=== PATIENT | male | born 1950 | race Caucasian/White ===

== ENCOUNTER 2016-12-16 21:26 | Inpatient (IN) | payer MEDICARE, OTHER ==
[~2016-12-16] VITALS: Ht 170.2 cm; Wt 60.1 kg
[~2016-12-16 21:26] MED LIST: ASPI-664 PO; CALC667C4 PO; CLOB15OI15 TOP; CLON-379 PO; CNC30T PO; DOCU250C58 PO; ENAL20TA PO; ERGO500014 PO; HYDR-3671 PO; LEVO250T35 PO; NEPH PO; NIFE60TA7 PO; PANT40TA4 PO; SEVE800T7 PO
[2016-12-16] MEDS ORDERED: ONDANSETRON 4 MG INJ IV STA (22:05)
[2016-12-16] MEDS ORDERED: morphine 4 MG/ML VIAL IV STA (22:05)
[2016-12-16] MEDS ORDERED: SOD CHLORIDE 0.9% 500 ML IV STA (22:05)
[2016-12-16 22:49] LABS: ADD SCAN DIFF NO
--- NOTE | 2016-12-16 22:50 | RADRPT ---
PROCEDURE: CT BRAIN WITHOUT CONTRAST CLINICAL INDICATION: 66-year-old male with headaches. TECHNIQUE: The study was performed utilizing [employer] VCT 64-slice CT scanner. Direct axial sections were obtained from the foramen magnum to the vertex without the use of intravenous contrast material. Sagittal and coronal reformations were obtained. Sagittal and coronal reformations were obtained. One or more the following dose reduction techniques were utilized: automated exposure cont rol, adjustment of the mA and/or kV according to patient's size or use of iterative reconstruction t echnique. The images were viewed on a PACS workstation. CTD/vol = 45.0 mGy; Total Exam DLP = 810.3 mGy-cm. COMPARISON: CT brain March 15, 2016 FINDINGS: There is moderate degree of diffuse cortical and central atrophy with compensatory ventricular enlar gement. There is no evidence for mass effect or midline shift. There are periventricular areas of decreased density consistent with microangiopathic ischemic changes. There is an old lacunar infarct within the right external capsule region again noted. There is a questionable old lacunar infarct within the left pontine isthmus region. There is no evidence for acute intra or extra-axial blood. Calcifications are seen within the intracranial carotid arteries bilaterally. The bony calvarium is intact. 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 There is mild mucosal thickening within the ethmoid air cells bilater ally. No air-fluid levels are noted. Soft tissues again identified within the right mastoid air ce lls without interval change which may represent granulation tissue. There has been interval development of soft tissue and fluid within the left mastoid air cells and middle ear consistent wit h otomastoid disease. IMPRESSION: 1. Moderate diffuse atrophy. 2. Microangiopathic ischemic changes. 3. 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 4. Questionable old lacunar infarct within the left pontine isthmus region. 5. Vascular calcifications. 6. Mild mucosal thickening ethmoid air cells. 7. Interval development of left otomastoid disease. .Ruddy Morley MD, Date Time Electronically viewed and signed by .Ruddy Morley MD, on 12/16/2016 22:49 .Alysa
[2016-12-16 22:51] LABS: BASOPHILS % 0.9 % (0.0-2.0); EOSINOPHILS # 0.3 10^3/ul (0.0-0.5); EOSINOPHILS % 9.7 % (0.0-7.0); HEMATOCRIT 33.7 % (42.0-52.0); LYMPHOCYTES # 1.4 10^3/ul (0.8-2.9); LYMPHOCYTES % 40.4 % (15.0-51.0); MEAN CORPUSCULAR HEMOGLOBIN 31.8 pg (29.0-33.0); MEAN CORPUSCULAR HGB CONC 32.6 g/dl (32.0-37.0); MEAN CORPUSCULAR VOLUME 97.4 fl (82.0-101.0); MEAN PLATELET VOLUME 10.9 fl (7.4-10.4); MONOCYTE # 0.6 10^3/ul (0.3-0.9); MONOCYTES % 16.2 % (0.0-11.0); NEUTROPHIL # 1.1 10^3/ul (1.6-7.5); NEUTROPHILS % 32.5 % (39.0-77.0); PLATELET COUNT 206 10^3/UL (140-415); RED BLOOD COUNT 3.46 10^6/ul (4.70-6.10); RED CELL DISTRIBUTION WIDTH 14.2 % (11.5-14.5); WHITE BLOOD COUNT 3.4 10^3/ul (4.8-10.8)
[2016-12-16 23:02] LABS: INR 1.02; PROTIME 13.4 Sec (12.2-14.2)
[2016-12-16 23:03] LABS: PARTIAL THROMBOPLASTIN TIME 36.5 Sec (25.0-35.0)
[2016-12-16 23:04] LABS: POTASSIUM 4.3 mmol/L (3.5-5.1)
[2016-12-16 23:06] LABS: CREATININE 5.26 mg/dl (0.61-1.24)
[2016-12-16 23:07] LABS: CALCIUM 8.7 mg/dl (8.4-10.2)
[2016-12-17 00:29] VITALS: TEMP 97.8
[2016-12-17] MEDS ORDERED: NACL 0.9% 3 ML SYG IV SCH (01:30)
[2016-12-17] MEDS ORDERED: MAGNESIUM HYDROXIDE 30ML CUP PO PRN (01:30)
[2016-12-17] MEDS ORDERED: PIPER-TAZO 3.375 GM IV (PMX) 100 ML IVPB ONE (01:30)
[2016-12-17] MEDS ORDERED: ACETAMINOPHEN 325 MG TAB PO PRN (01:30)
[2016-12-17] MEDS ORDERED: VANCOMYCIN IV PER PHARMACY XX SCH (01:30)
[2016-12-17] MEDS ORDERED: morphine 2 MG INJ IV PRN (01:30)
[2016-12-17] MEDS ORDERED: ONDANSETRON 4 MG INJ IV PRN (01:30)
--- NOTE | 2016-12-17 01:52 | ERA ---
ER Documentation Chief Complaint Date/Time DATE: 12/17/16 TIME: 01:51 Chief Complaint ear infection x 2 weeks. nausea/pain HPI This is a 66-year-old male comes in with complaints of left-sided ear and jaw pain for the past 2 weeks. He has been on outpatient course of antibiotics at a care home facility but with no improvement. Patient comes in with complaints of mild to moderate pain in that area. ROS All systems reviewed and are negative except as per history of present illness. Medications Home Meds Active Scripts Clonidine Hcl* (Clonidine Hcl*) 0.1 Mg Tab, 0.1 MG PO TID for 30 Days Prov:MARY DINERO MD 07/24/15 Reported Medications Clobetasol Propionate* (Clobetasol Propionate*) 15 Gm Oint, 1 APPLIC TOP BID, # 1 TUB 03/15/16 Nifedipine* (Nifedipine ER*) 60 Mg Tablet.sa, 120 MG PO DAILY, TAB.SA 03/15/16 Ergocalciferol* (Drisdol* (Vitamin D2)) 50,000 Unit Capsule, 44047 UNIT PO Q7D, CAP TAKES ON Saturday03/15/16 Docusate Sodium* (Colace*) 250 Mg Capsule, 250 MG PO BID, #60 CAP 03/15/16 Cinacalcet* (Sensipar*) 30 Mg Tab, 30 MG PO WITH DINNER, TAB 07/22/15 Sevelamer Carbonate* (Renvela*) 800 Mg Tablet, 0.8 GM PO WITH MEALS, TAB 07/22/15 Pantoprazole* (Pantoprazole*) 40 Mg Tablet.dr, 40 MG PO DAILY, TAB 07/22/15 Hydralazine Hcl* (Hydralazine Hcl*) 25 Mg Tab, 25 MG PO Q8, TAB 07/22/15 Enalapril Maleate* (Enalapril Maleate*) 20 Mg Tablet, 20 MG PO DAILY, TAB 07/22/15 Aspirin* (Aspirin* EC) 81 Mg Tablet.dr, 81 MG PO DAILY, TAB 07/22/15 Multivit/Ca Carb/B Cmplx/Fa* (Cecilia-Sana*) 1 Tab Tab, PO DAILY 06/05/11 Calcium Acetate (Phoslo) 667 Mg Capsule, PO TID 06/05/11 Discontinued Scripts Levofloxacin* (Levaquin*) 250 Mg Tablet, 250 MG PO DAILY for 5 Days, #5 TAB Prov:MARY DINERO MD 03/20/16 Allergies Allergies: Coded Allergies: No Known Allergies (Verified Allergy, Mild, 03/15/16) PMhx/Soc Anesthesia Reaction: No Hx Neurological Disorder: No (PT IS VERY DROWSY) Hx Respiratory Disorders: Yes (ON O2, PT IS VERY DROWSY) Hx Miscellaneous Medical Probl: Yes (CHRONIC ANEMIA, end stage renal failure, htn) Hx Alcohol Use: No Hx Substance Use: No Hx Tobacco Use: No Smoking Status: Never smoker Physical Exam Vitals Vital Signs Date Time Temp Pulse Resp B/P Pulse Ox O2 Delivery O2 Flow Rate FiO2 12/17/16 00:29 97.8 79 16 137/76 97 Room Air 12/16/16 22:24 97.8 87 16 155/70 97 Room Air 12/16/16 21:42 97.8 55 12 162/72 97 Physical Exam Const: [] Head: Atraumatic Eyes: Normal Conjunctiva ENT: Normal External Ears, Nose and Mouth. Neck: Full range of motion..~ No meningismus. Resp: Clear to auscultation bilaterally Cardio: Regular rate and rhythm, no murmurs Abd: Soft, non tender, non distended. Normal bowel sounds Skin: No petechiae or rashes Back: No midline or flank tenderness Ext: No cyanosis, or edema Neur: Awake and alert Psych: Normal Mood and Affect Result Diagram: 12/16/160 12/16/16 2220 Results 24 hrs Laboratory Tests Test 12/16/16 22:20 Activated Partial Thromboplast Time 36.5Sec Anion Gap 17 Basophils # 0.010^3/ul Basophils % 0.9% Blood Urea Nitrogen 47mg/dl Calcium Level 8.7mg/dl Carbon Dioxide Level 33mmol/L Chloride Level 94mmol/L Creatinine 5.26mg/dl Eosinophils # 0.310^3/ul Eosinophils % 9.7% Glucose Level 120mg/dl Hematocrit 33.7% Hemoglobin 11.0g/dl INR International Normalized Ratio 1.02 Lymphocytes # 1.410^3/ul Lymphocytes % 40.4% Mean Corpuscular Hemoglobin 31.8pg Mean Corpuscular Hemoglobin Concent 32.6g/dl Mean Corpuscular Volume 97.4fl Mean Platelet Volume 10.9fl Monocytes # 0.610^3/ul Monocytes % 16.2% Neutrophils # 1.110^3/ul Neutrophils % 32.5% Nucleated Red Blood Cells # 0.010^3/ul Nucleated Red Blood Cells % 0.0/100WBC Platelet Count 99772^3/UL Potassium Level 4.3mmol/L Prothrombin Time 13.4Sec Prothrombin Time Ratio 1.0 Red Blood Count 3.4610^6/ul Red Cell Distribution Width 14.2% Sodium Level 140mmol/L White Blood Count 3.410^3/ul Current Medications Medications (Trade) Dose Ordered Sig/[place] Route PRN Reason Start Time Stop Time Status Last Admin Dose Admin Sodium Chloride (NS) 500 ml @ 500 mls/hr Q1H STAT IV 12/16/16 22:05 12/16/16 23:04 DC 12/16/16 22:21 Ondansetron HCl (Zofran Inj) 4 mg ONCE STAT IV 12/16/16 22:05 12/16/16 22:07 DC 12/16/16 22:21 Morphine Sulfate 4 mg 4 mg ONCE STAT IV 12/16/16 22:05 12/16/16 22:07 DC 12/16/16 22:20 Piperacillin Sod/ Tazobactam Sod (Zosyn 3.375gm/ 100 ml (Pmx)) 100 ml @ 200 mls/hr ONCE ONCE IVPB 12/17/16 01:30 12/17/16 01:59 12/17/16 01:26 IV Flush (NS 3 ml) 3 ml PER PROTOCOL IV 12/17/16 01:30 UNV Ondansetron HCl (Zofran Inj) 4 mg Q6H PRN IV NAUSEA AND/OR VOMITING 12/17/16 01:30 UNV Acetaminophen (Tylenol Tab) 650 mg Q6H PRN PO PAIN LEVEL 1-3 OR FEVER 12/17/16 01:30 UNV Acetaminophen/ Hydrocodone Bitart ([place] (5/325)) 1 tab Q6H PRN PO MODERATE PAIN LEVEL 4-6 12/17/16 01:30 UNV Morphine Sulfate (morphine) 2 mg Q4H PRN IV SEVERE PAIN LEVEL 7-10 12/17/16 01:30 UNV Docusate Sodium (Colace) 100 mg Q12H PRN PO CONSTIPATION 12/17/16 01:30 UNV Magnesium Hydroxide (Milk Of Mag) 30 ml DAILY PRN PO CONSTIPATION 12/17/16 01:30 UNV Pantoprazole (Protonix Tab) 40 mg DAILY@06 PO 12/17/16 06:00 UNV Heparin Sodium (Porcine) (Heparin (5000 Units/0.5 ml)) 5,000 unit Q12 SC 12/17/16 09:00 UNV Aspirin (Halfprin) 81 mg DAILY PO 12/17/16 09:00 UNV Calcium Acetate (Phoslo) 667 mg TID PO 12/17/16 09:00 UNV Cinacalcet (Sensipar) 30 mg WITH DINNER PO 12/17/16 18:00 UNV Docusate Sodium (Colace) 250 mg BID PO 12/17/16 09:00 UNV Ergocalciferol (Drisdol) 50,000 unit Q7D PO 12/17/16 01:30 UNV Hydralazine HCl (Apresoline) 25 mg Q8 PO 12/17/16 06:00 UNV Multivit/Ca Carb/ B Cmplx/FA/Prenat (Cecilia-Sana) 1 tab DAILY PO 12/17/16 09:00 UNV Nifedipine (Procardia Xl) 120 mg DAILY PO 12/17/16 09:00 UNV Pantoprazole (Protonix Tab) 40 mg DAILY PO 12/17/16 09:00 UNV Sevelamer Carbonate (Renvela) 0.8 gm WITH MEALS PO 12/17/16 08:00 UNV Vancomycin HCl VANCOMYCIN PER PHARMACY PER PROTOCOL XX 12/17/16 01:30 UNV Piperacillin Sod/ Tazobactam Sod (Zosyn 2.25gm/ 50ml (Pmx)) 50 ml @ 100 mls/hr Q12 IVPB 12/17/16 09:00 UNV Procedures/MDM Medical decision making: CT shows evidence of otomastoiditis. Patient started on intravenous antibiotics. Patient will be admitted to Dr. Schafer who is the patient's primary care physician Departure Diagnosis: Primary Impression: Mastoiditis Qualified Code: H70.90 - Mastoiditis, unspecified laterality Condition: Serious DEMETRICE CONDE Dec 17, 2016 01:52
--- NOTE | 2016-12-17 02:34 | RADRPT ---
PROCEDURE: CHEST - 1 VIEW CLINICAL INDICATION: 66-year-old male with chest pain. TECHNIQUE: A single frontal AP upright portable view of the chest was performed. The images were reviewed on a PACS workstation. COMPARISON: Chest x-ray March 19, 2016. FINDINGS: The cardiomediastinal silhouette is mildly enlarged. The thoracic aortic arch is calcified. There i s a shallow inspiration. There is bilateral lower lung zone subsegmental atelectasis. There is no evidence for an infiltrate. There is no evidence for congestive heart failure. There is no evidence for pneumothorax. The osseous structures are intact. IMPRESSION: 1. Cardiomegaly. 2. Calcified thoracic aortic arch. 3. Shallow inspiration. 4. Bilateral lower lung zone subsegmental atelectasis. .Ruddy Morley MD, Date Time Electronically viewed and signed by .Ruddy Morley MD, on 12/17/2016 02:34 .M/
[2016-12-17 02:51] VITALS: BP 156/64; RESP 16
[2016-12-17 03:08] VITALS: Ht 170.2 cm; Wt 60.1 kg
[2016-12-17] MEDS ORDERED: VANCOMYCIN 1.5 GM in SOD CHLORIDE 0.9% 250 ML IVPB SCH (05:00)
[2016-12-17] MEDS: PANTOPRAZOLE (EC) 40 MG TAB PO SCH (05:34)
[2016-12-17 08:43] VITALS: BP 170/74; RESP 18
[2016-12-17] MEDS: PIPER-TAZO 2.25 GM (PMX) 50 ML IVPB SCH ×2 (08:49→21:17)
[2016-12-17] MEDS: SEVELAMER CARBONATE 0.8 GM PKT PO SCH ×3 (08:49→17:30)
[2016-12-17] MEDS: MULTIVIT/CA CARB/B CMPLX/FA TAB PO SCH (08:50)
[2016-12-17] MEDS: DOCUSATE SODIUM 250 MG CAP PO SCH ×2 (08:50→21:17)
[2016-12-17] MEDS: ASPIRIN (EC) 81 MG TAB PO SCH (08:50)
[2016-12-17] MEDS: CALCIUM ACETATE 667 MG CAP PO SCH ×3 (08:50→21:17)
[2016-12-17] MEDS: NIFEdipine (XL) 60 MG TAB PO SCH (08:51)
[2016-12-17] MEDS: HEPARIN 5,000 UNIT/0.5 ML SYG SC SCH ×2 (08:56→21:22)
[2016-12-17] MEDS ORDERED: PANTOPRAZOLE (EC) 40 MG TAB PO SCH (09:00)
[2016-12-17 11:29] VITALS: BP 165/72; PULSE 54
[2016-12-17] MEDS: HYDROCODONE/APAP (5/325) TAB PO PRN ×2 (12:05→23:10)
[2016-12-17 12:46] VITALS: BP 155/70; PULSE 56
--- NOTE | 2016-12-17 16:55 | QN ---
Documentation Comment [id number] consult A/P ESRD HTN DM OTOMASTOIDITES BLINDNESS PLAN PER ORDER JAZZY THOMAS MD Dec 17, 2016 16:54
[2016-12-17] MEDS: CINACALCET 30 MG TAB PO SCH (17:30)
[2016-12-17] MEDS ORDERED: AMLODIPINE 5 MG TAB PO ONE (18:00)
[2016-12-17 20:00] VITALS: BP 120/58; RESP 18
[2016-12-17] MEDS: ATORVASTATIN 40 MG TAB PO SCH (21:17)
[2016-12-18] VITALS (13 sets, daily range): BP systolic 132–229; BP diastolic 68–98; PULSE 47–56; RESP 10–18
--- NOTE | 2016-12-18 03:21 | HP ---
DATE OF ADMISSION: 12/17/2016 REASON FOR ADMISSION: Acute left heel mastoiditis and severe left heel pain. HISTORY OF PRESENT ILLNESS: The patient is a 66-year-old male who is legally blind, overal l debilitated, with a history of end-stage renal disease on hemodialysis every Saturday, , an d Saturday, nonambulatory, history of diabetes mellitus and hypertension who currently resides at [facility]. The patient states that in the past 2 to 3 weeks, he has b een complaining of increased left ear pain. The pain was more severe, and he came to the emergency department. In the ER, initial vital signs showed a temperature 97.8, pulse 55, respirations 12, bl ood pressure 162/72, saturation 97%. The patient underwent a CT scan of the brain which showed mode rate diffuse atrophy, microangiopathic ischemic changes, old right external capsule lacunar infarct, questionable old lacunar infarct within the left pontine isthmus region, vascular calcification, mi ld mucosal thickening of ethmoid air cells. There is interval development of left mastoiditis. Sia st x-ray shows bilateral lower lung zone subsegmental atelectasis and calcified thoracic aorta and c ardiomegaly. The patient received Zosyn for mastoiditis and was admitted for further care. The westley n complaint is the patient's left ear pain. The patient is admitted for further care. Denies any f ever or chills. Denies any weakness or numbness. The patient overall unfortunately is debilitated, bedridden. Since admission, I consulted the patient's ranch manager, Dr. Roel Jacob, to dialyze h im during the patient's stay. PAST MEDICAL HISTORY: Includes diabetes mellitus, hypertension, end-stage renal disease, debilitate d state, legally blind, anemia of chronic disease, and left AV shunt. SURGICAL HISTORY: Includes cholecystectomy and left AV fistula. ALLERGIES: NO KNOWN DRUG ALLERGIES. SOCIAL HISTORY: Tobacco: None. Alcohol: Socially in the past. Drugs: None. FAMILY HISTORY: The patient has extensive history of diabetes mellitus in the family. The patient is , +4, one of them is . MEDICATIONS: Include 1. Aspirin 81 mg daily. 2. Clonidine 0.1 mg t.i.d. 3. Enalapril 20 mg daily. 4. Hydralazine 25 mg t.i.d. 5. Nifedipine 60 mg 2 tablets daily. 6. [place] 3 two capsules b.i.d. 7. Protonix 40 mg daily. 8. Renvela 800 mg t.i.d. 9. Sensipar 60 mg 1 tab daily with dinner, 90 mg with dinner. 10. Stool softener 250 b.i.d. 11. Vitamin D 50,000 units once every week on Saturday. 12. Clobetasol 0.5 ointment as directed b.i.d. REVIEW OF SYSTEMS: Per HPI. PHYSICAL EXAMINATION: VITAL SIGNS: Temperature 97.6, pulse 56, respirations 18, blood pressure 155/70, saturation 97% on room air. GENERAL: The patient is in no acute distress. The patient is legally blind. NECK: No lymphadenopathy. Pain upon movement of the left earlobe. CARDIOVASCULAR: S1 and S2, regular rate. LUNGS: Clear. ABDOMEN: Soft, nontender. EXTREMITIES: Contracted at the knees, unfortunately. Left upper extremity AV fistula noted. LABORATORY DATA: White count of 3.4, hemoglobin 11, hematocrit 34, platelet count 206, neutrophils 33%, lymphocytes 40%, monocytes 16%. Sodium 140, potassium 4.3, chloride 94, bicarbonate 23, BUN is 47, creatinine 5.26, glucose 120. INR 1.02. Chest x-ray as above. CAT scan of the brain as above . EKG, I do not see one. Labs dated 12/17/2016, outpatient cholesterol was 260, LDL was high at 14 7, glucose of 107. Uric acid 5.2. AST was slightly high at 51. Iron levels were normal at 92. UA was essentially negative. ASSESSMENT AND PLAN: This is an unfortunate 66-year-old male with history of end-stage carlo al disease, diabetes mellitus, hypertension, legally blind, who presents with left-sided ear mastoid itis. 1. Left ear mastoiditis. We will obtain cultures of the left ear. I started the patient on broad spectrum antibiotic with Zosyn and vancomycin to cover strep, staph, MRSA, pseudomonas. We will con sult ID regarding duration of IV antibiotics. Follow up cultures. See if we need to obtain an ENT consultation. Pain control will be provided for now, and we will follow. 2. End-stage renal disease. The patient to be dialyzed tomorrow as his dialysis days are Saturday, , and Saturday. 3. Hypertension. Resume patient's medication. 4. Dyslipidemia. Start the patient on statin. 5. Diabetes mellitus. Check Accu-Chek with meals and at bedtime. Insulin coverage will be provide d. Check hemoglobin A1c. 6. The patient will be placed on deep vein thrombosis prophylaxis and gastrointestinal prophylaxis. Case discussed with family at bedside. We will follow. Dictated By: MARY DUPONT/SHARYN Conf#: [id number] DID#: [id number]
[2016-12-18 05:34] LABS: ADD SCAN DIFF NO
[2016-12-18 06:03] LABS: POTASSIUM 5.2 mmol/L (3.5-5.1)
[2016-12-18] MEDS: PANTOPRAZOLE (EC) 40 MG TAB PO SCH (06:04)
[2016-12-18 06:05] LABS: ALBUMIN/GLOBULIN RATIO 0.96; CREATININE 7.57 mg/dl (0.61-1.24); TOTAL PROTEIN 6.1 g/dl (6.1-8.1)
[2016-12-18 06:06] LABS: CALCIUM 8.3 mg/dl (8.4-10.2); MAGNESIUM 2.5 mg/dl (1.7-2.5); PHOSPHORUS 4.4 mg/dl (2.5-4.9)
[2016-12-18 06:08] LABS: BASOPHILS % 0.5 % (0.0-2.0); EOSINOPHILS # 0.3 10^3/ul (0.0-0.5); EOSINOPHILS % 7.3 % (0.0-7.0); HEMATOCRIT 30.5 % (42.0-52.0); HEMOGLOBIN 9.8 g/dl (14.0-18.0); LYMPHOCYTES # 1.4 10^3/ul (0.8-2.9); LYMPHOCYTES % 36.1 % (15.0-51.0); MEAN CORPUSCULAR HEMOGLOBIN 31.6 pg (29.0-33.0); MEAN CORPUSCULAR HGB CONC 32.1 g/dl (32.0-37.0); MEAN CORPUSCULAR VOLUME 98.4 fl (82.0-101.0); MEAN PLATELET VOLUME 10.9 fl (7.4-10.4); MONOCYTE # 0.4 10^3/ul (0.3-0.9); MONOCYTES % 10.5 % (0.0-11.0); NEUTROPHIL # 1.7 10^3/ul (1.6-7.5); NEUTROPHILS % 45.6 % (39.0-77.0); PLATELET COUNT 208 10^3/UL (140-415); RED CELL DISTRIBUTION WIDTH 14.1 % (11.5-14.5); WHITE BLOOD COUNT 3.8 10^3/ul (4.8-10.8)
--- NOTE | 2016-12-18 07:57 | CONS ---
DATE OF ADMISSION: 12/17/2016 DATE OF CONSULTATION: 12/17/2016 INFECTIOUS DISEASE CONSULTATION REASON FOR CONSULTATION: Antibiotic management. HISTORY OF PRESENT ILLNESS: Kumar Rebolledo is a 66-year-old male who comes in with complaints of magnus sea, pain and ear infection for 2 weeks. The patient has left-sided ear and jaw pain. He has had a n outpatient course of antibiotics at a correction facility without any improvement. His is ta abhijit care of by Dr. Omkar Patterson. PAST MEDICAL HISTORY: His past problems include: 1. Hypertension. 2. Hypothyroidism. 3. Anemia of chronic disease. 4. As noted, end-stage renal failure. PAST MEDICAL HISTORY: Operations as outlined, none. FAMILY HISTORY: Noncontributory. SOCIAL HISTORY: He does not smoke, drink or abuse drugs. ALLERGIES: NONE TO PENICILLIN, SULFA OR FOODS. MEDICATIONS: Per chart. REVIEW OF SYSTEMS: As per HPI. PHYSICAL EXAMINATION: GENERAL: The patient is a 66-year-old male who is awake, responsive, in no acute distress. VITAL SIGNS: Stable. He is afebrile. SKIN: Without generalized rash. HEENT: The patient has left ear pain. NECK: Supple. LYMPH NODES: None palpable. CHEST: Decreased breath sounds at the bases. HEART: Without murmur or gallop. ABDOMEN: Soft, nontender without organosplenomegaly or masses. EXTREMITIES: Without cyanosis, clubbing, or edema. RECTAL AND GENITAL: Exams deferred. NEUROLOGIC: No focal neurological abnormalities. ANCILLARY LABORATORY DATA: White count of 3.4, H and H 11 and 33.7, platelet count 206,000. BUN an d creatinine 47/5.26. IMPRESSION AND PLAN: The patient has evidence on CT scan of otomastoiditis. He was started on vanc omycin and Zosyn. He should be seen by an ear, nose and throat specialist. I will dictate my findi ngs to Dr. Patterson and to Dr. Roel Jacob. Dictated By: DORCAS HDZ MD, JD/SHARYN Conf#: [id number] DID#: [id number]
[2016-12-18 08:18] LABS: THYROID STIMULATING HORMONE 1.87 MIU/L (0.465-4.680)
[2016-12-18] MEDS: CALCIUM ACETATE 667 MG CAP PO SCH ×3 (08:46→20:00)
[2016-12-18] MEDS: ASPIRIN (EC) 81 MG TAB PO SCH (08:46)
[2016-12-18] MEDS: MULTIVIT/CA CARB/B CMPLX/FA TAB PO SCH (08:46)
[2016-12-18] MEDS: DOCUSATE SODIUM 250 MG CAP PO SCH ×2 (08:46→20:02)
[2016-12-18] MEDS: SEVELAMER CARBONATE 0.8 GM PKT PO SCH ×3 (08:46→18:05)
[2016-12-18] MEDS: NIFEdipine (XL) 60 MG TAB PO SCH (08:47)
[2016-12-18] MEDS: PIPER-TAZO 2.25 GM (PMX) 50 ML IVPB SCH ×2 (08:57→20:00)
[2016-12-18] MEDS: HEPARIN 5,000 UNIT/0.5 ML SYG SC SCH ×2 (09:06→20:17)
[2016-12-18] MEDS: HYDROCODONE/APAP (5/325) TAB PO PRN (10:24)
--- NOTE | 2016-12-18 13:18 | CONS ---
DATE OF ADMISSION: 12/17/2016 DATE OF CONSULTATION: Thank you, Dr. Patterson, for kindly asking me to see this patient in nephrology consultation. HISTORY OF PRESENT ILLNESS: Kumar Rebolledo is a 66-year-old male who has a history of ESRD, history of anemia, hypertension, diabetes mellitus, legal blindness. Presented to this hospital with left-sided ear pain and jaw pain. The patient's blood pressure 131/76, potassium 4.3, hematocrit 36.7. The patient is admitted with otomastoiditis. PAST MEDICAL HISTORY: Hypertension, diabetes mellitus, ESRD, anemia, legal blindness, AV fistula in the left upper extremity. The patient claims that i ALLERGY HISTORY: NEGATIVE. FAMILY HISTORY: Denies. SOCIAL HISTORY: Denies. MEDICATION HISTORY: The patient is currently on: 1. Aspirin. 2. PhosLo. 3. Sensipar. 4. Clobetasol. 5. Docusate sodium. 6. Enalapril. 7. bp meds 8. Hydralazine. 9. Multiple vitamin. 10. Nifedipine. 11. Protonix. 12. Renvela. Currently, the patient is on: 1. Aspirin. 2. Calcium acetate. 3. Sensipar. 4. Clonidine. 5. Docusate sodium. 6. Ergocalciferol. 7. Heparin. 8. Hydralazine. 9. Magnesium. 10. ____. 11. Nifedipine. REVIEW OF SYSTEMS: HEENT: Legally blind. RESPIRATORY: No shortness of breath. CARDIOVASCULAR: No chest pain, palpitation. ABDOMEN: No dyspepsia. EXTREMITIES: No swelling. PHYSICAL EXAMINATION: GENERAL: The patient is awake, alert, anxious, blind. VITAL SIGNS: Pulse 54, blood pressure 160_/72. HEENT: Head is atraumatic, normocephalic. Corneas are cloudy. NECK: Supple. LUNGS: Clear. CARDIOVASCULAR: S1, S2 are normal. ABDOMEN: Soft. Bowel sounds positive. No masses palpable. EXTREMITIES: No cyanosis, clubbing, edema. AV fistula in left upper extremity noted. LABORATORY DATA: WBC 3.4, hematocrit 33.7. The patient's sodium 140, potassium 4.3, BUN 47, creatinine 5.26. The patient had a chest x-ray shows cardiomegaly, calcified thoracic aortic arch, shallow aspiration, bilateral lower lung zone subsegmental atelectasis. CT brain, moderate diffuse atrophy, microangiopathic ischemic change, old right external capsule lacunar infarction. The patient _ calcification, mild mucosal thickening, ethmoidal air cells, interval development of left otomastoid disease. IMPRESSION: 1. The patient has otomastoiditis. 2. Endstage renal disease. 3. Hypertension. 4. Diabetes mellitus. 5. Legal blindness. 6. The patient has anemia. 7. Neutropenia. 8. AV fistula in left upper extremity. 9. Hemodialysis 3 times a week, Saturday, , Saturday. PLAN: To continue current treatment per Dr. Patterson. The patient will have hemodialysis ordered for tomorrow. The patient is receiving antibiotic. Thank you, Dr. Patterson, for kindly asking me to see this patient in nephrology consultation. Dictated By: JAZZY THOMAS MD BS/NTS Conf#: [id number] DID#: [id number] CC: MARY PATTERSON MD;*EndCC* MTDD
--- NOTE | 2016-12-18 14:15 | PN ---
DATE: 12/18/2016 SUBJECTIVE: No acute changes. Patient is in dialysis, looks comfortable, no fevers. WBC 3.8. No shift, no bands. MICROBIOLOGY: Drainage from the left ear growing gram-negative rods, preliminary. ANTIMICROBIALS: The patient is on: 1. Vancomycin. 2. Zosyn. PHYSICAL EXAMINATION: GENERAL: Chronically ill-appearing, elderly man in no distress. HEENT: Head atraumatic, normocephalic. Sclerae anicteric. Buccal mucosa dry. NECK: Supple. CHEST: Rise symmetrical. Breath sounds diminished to bases. HEART: S1, S2. ABDOMEN: Soft, bowel sounds present. EXTREMITIES: Without cyanosis. ASSESSMENT: 1. Left otomastoiditis. 2. End-stage renal disease, hemodialysis dependent. 3. Anemia. PLAN: The patient remains stable. We will keep him on current antimicrobials and await for final c ultures of the left ear drainage. Consider ENT evaluation. Dictated By: SANTIAGO FAUSTIN FREIGHT CAR LOADER for DORCAS DAILY/SHARYN Conf#: [id number] DID#: [id number]
--- NOTE | 2016-12-18 17:18 | PN ---
DATE: 12/18/2016 The patient is seen complaining of left periauricular pain. I appreciate Dr. Ortiz's recommendatio n as he recommended to consult ENT. I have consulted an ENT specialist and we will await recommenda tions. Patient is status post hemodialysis today, currently otherwise with no other complaints besi carlitos the ear pain. Cultures of the left ear already shows gram-negative rods. PHYSICAL EXAMINATION: VITAL SIGNS: Temperature 97.9, pulse is 51, respirations 17, blood pressure 157/71, saturation 96%. GENERAL: No acute distress. HEENT: Normocephalic, atraumatic. The patient is pale. Left periauricular pain. CARDIOVASCULAR: S1 and S2, regular rate. LUNGS: Clear. ABDOMEN: Soft, nontender. EXTREMITIES: No clubbing, cyanosis, or edema. Left upper extremity AV fistula. LABORATORY DATA: White count is 3.8, hemoglobin 9.8, hematocrit 31, platelet count is 208, neutrop hils 46% ____. Chemistry: Sodium is 140, potassium is slightly high at 5.2, chloride 96, bicarbona te 31, BUN is 65, creatinine is 7.57, glucose 126. Hemoglobin A1c 6.5. Microbiology: Left ear cul ture shows gram-negative rods +2. MRSA screening is negative. Chest x-ray on admission shows bila teral lower lung zone subsegmental atelectasis. MEDICATIONS: 1. Drisdol 50,000 weekly. 2. Lipitor 40 mg at bedtime. 3. Sensipar 30 q. with dinner. 4. Clonidine 0.1 t.i.d. 5. Hydralazine 25 q.4h. p.r.n. 5. Heparin 5000 units subq q.12h. 6. Aspirin 81 daily. 7. PhosLo 667 t.i.d. 8. Colace 250 b.i.d. 9. Cecilia-Sana 1 tab daily. 10. Nifedipine 120 daily. 11. Zosyn 3.375 IV q.12h, renally dosed. 12. Renvela 0.8 with meals. 13. Protonix 40 mg daily. 14. Zofran p.r.n. 15. Tylenol p.r.n. 16. [place] p.r.n. 17. Morphine p.r.n. 18. ____ 19. Vancomycin dose per pharmacy. ASSESSMENT AND PLAN: This is a 66-year-old male with history of end-stage renal disease, d iabetes mellitus, hypertension, legally blind, who presented with left-sided ear pain consistent wit h otomastoiditis. 1. Left ear mastoiditis. Cultures are positive. Continue broad spectrum antibiotic with vancomyci n and Zosyn. Follow up cultures and adjust antibiotics appropriately. ENT was consulted. We will follow up with recommendations. 2. End-stage renal disease on dialysis every Saturday, and Saturday, status post hemodialys is this morning. Monitor electrolytes. 3. Hypertension. Continue current meds. Titrate up as needed. 4. Dyslipidemia. Continue statins. 5. Diabetes mellitus. Hemoglobin A1c is good at 6.5. Accu-Cheks are as follows: 126 and 120 on hi s a.m. labs. 6. Continue deep vein thrombosis prophylaxis and gastrointestinal prophylaxis. We will follow. Dictated By: MARY DUPONT/SHARYN Conf#: [id number] DID#: [id number]
[2016-12-18] MEDS: CINACALCET 30 MG TAB PO SCH (18:05)
[2016-12-18] MEDS: DOCUSATE SODIUM 100 MG CAP PO PRN (20:00)
[2016-12-18] MEDS: ATORVASTATIN 40 MG TAB PO SCH (20:00)
[2016-12-18] MEDS ORDERED: hydrALAzine 20 MG INJ IV PRN (23:00)
--- NOTE | 2016-12-18 23:25 | CONS ---
Date/Time of Note Date/Time of Note DATE: 12/18/16 TIME: 23:24 Assessment/Plan Assessment/Plan Chief Complaint/Hosp Course IMPRESSION: 1. The patient has otomastoiditis. 2. Endstage renal disease. 3. Hypertension. 4. Diabetes mellitus. 5. Legal blindness. 6. The patient has anemia. 7. Neutropenia. 8. AV fistula in left upper extremity. 9. Hemodialysis 3 times a week, Saturday, , Saturday. plan hd bp meds Problems: Consultation Date/Type/Reason Admit Date/Time Dec 17, 2016 at 01:12 Initial Consult Date Type of Consultation: renal 24 HR Interval Summary Constitutional: no complaints Exam/Review of Systems Vital Signs Vitals Vital Signs Date Time Temp Pulse Resp B/P Pulse Ox O2 Delivery O2 Flow Rate FiO2 12/18/16 22:30 98.3 56 18 211/93 96 Room Air Intake and Output 12/17/16 12/17/16 12/18/16 15:00 23:00 07:00 Intake Total 350 ml 860 ml 360 ml Balance 350 ml 860 ml 360 ml Exam Cardiovascular: regular rate and rhythm Gastrointestinal: soft Musculoskeletal: nl extremities to inspection Results Result Diagram: 12/18/16 0520 12/18/16 0520 Results 24 hrs Laboratory Tests Test 12/18/16 05:20 Alanine Aminotransferase (ALT/SGPT) 25 Albumin 3.0 L Albumin/Globulin Ratio 0.96 Alkaline Phosphatase 118 Anion Gap 18 H Aspartate Amino Transf (AST/SGOT) 23 Basophils # 0.0 Basophils % 0.5 Blood Urea Nitrogen 65 H Calcium Level 8.3 L Carbon Dioxide Level 31 Chloride Level 96 L Creatinine 7.57 #H Direct Bilirubin 0.00 Eosinophils # 0.3 Eosinophils % 7.3 H Globulin 3.10 Glucose Level 126 Hematocrit 30.5 L Hemoglobin 9.8 L Hemoglobin A1c 6.5 H Indirect Bilirubin 0.0 Lymphocytes # 1.4 Lymphocytes % 36.1 Magnesium Level 2.5 Mean Corpuscular Hemoglobin 31.6 Mean Corpuscular Hemoglobin Concent 32.1 Mean Corpuscular Volume 98.4 Mean Platelet Volume 10.9 H Monocytes # 0.4 Monocytes % 10.5 Neutrophils # 1.7 Neutrophils % 45.6 Nucleated Red Blood Cells # 0.0 Nucleated Red Blood Cells % 0.0 Phosphorus Level 4.4 Platelet Count 208 Potassium Level 5.2 H Red Blood Count 3.10 L Red Cell Distribution Width 14.1 Sodium Level 140 Thyroid Stimulating Hormone (TSH) 1.870 Total Bilirubin 0.0 L Total Protein 6.1 White Blood Count 3.8 L Medications Medications Current Medications Ondansetron HCl (Zofran Inj) 4 mg Q6H PRN IV NAUSEA AND/OR VOMITING Last administered on 12/17/16 12:06; Admin Dose 4 MG; Start 12/17/16 at 01:30 Acetaminophen (Tylenol Tab) 650 mg Q6H PRN PO PAIN LEVEL 1-3 OR FEVER; Start at 01:30 Acetaminophen/ Hydrocodone Bitart ([place] (5/325)) 1 tab Q6H PRN PO MODERATE PAIN LEVEL 4-6 Last administered on 12/18/16 10:24; Admin Dose 1 TAB; Start at 01:30 Morphine Sulfate (morphine) 2 mg Q4H PRN IV SEVERE PAIN LEVEL 7-10; Start 12/17 at 01:30 Docusate Sodium (Colace) 100 mg Q12H PRN PO CONSTIPATION Last administered on 20:00; Admin Dose 100 MG; Start 12/17/16 at 01:30 Magnesium Hydroxide (Milk Of Mag) 30 ml DAILY PRN PO CONSTIPATION; Start at 01:30 Pantoprazole (Protonix Tab) 40 mg DAILY@06 PO Last administered on 12/18/16 06 :04; Admin Dose 40 MG; Start 12/17/16 at 06:00 Heparin Sodium (Porcine) (Heparin (5000 Units/0.5 ml)) 5,000 unit Q12 SC Last administered on 12/18/16 20:17; Admin Dose 5,000 UNIT; Start 12/17/16 at 09:00 Aspirin (Halfprin) 81 mg DAILY PO Last administered on 12/18/16 08:46; Admin Dose 81 MG; Start 12/17/16 at 09:00 Calcium Acetate (Phoslo) 667 mg TID PO Last administered on 12/18/16 20:00; Admin Dose 667 MG; Start 12/17/16 at 09:00 Docusate Sodium (Colace) 250 mg BID PO Last administered on 12/18/16 20:02; Admin Dose 250 MG; Start 12/17/16 at 09:00 Ergocalciferol (Drisdol) 50,000 unit Q7D PO ; Start 12/19/16 at 09:00 Multivit/Ca Carb/ B Cmplx/FA/Prenat (Cecilia-Sana) 1 tab DAILY PO Last administered on 12/18/16 08:46; Admin Dose 1 TAB; Start 12/17/16 at 09:00 Nifedipine 120 mg 120 mg DAILY PO Last administered on 12/17/16 08:51; Admin Dose 120 MG; Start 12/17/16 at 09:00 Piperacillin Sod/ Tazobactam Sod (Zosyn 2.25gm/ 50ml (Pmx)) 50 ml @ 100 mls/hr Q12 IVPB Last administered on 12/18/16 20:00; Admin Dose 100 MLS/HR; Start at 09:00 Clonidine (Catapres) 0.1 mg TID PO Last administered on 12/18/16 20:01; Admin Dose 0.1 MG; Start 12/17/16 at 11:00 Hydralazine HCl (Apresoline) 25 mg Q4H PRN PO ELEVATED BLOOD PRESSURE Last administered on 12/18/16 20:00; Admin Dose 25 MG; Start 12/17/16 at 11:00 Atorvastatin Calcium (Lipitor) 40 mg HS PO Last administered on 12/18/16 20:00 ; Admin Dose 40 MG; Start 12/17/16 at 21:00 Miscellaneous Information (*Rx Drug Level Order Reminder*) VANCO RANDOM LEVEL... ONCE ONCE XX ; Start 12/19/16 at 05:00; Stop 12/19/16 at 05:01 Hydralazine HCl (Apresoline) 10 mg Q4H PRN IV for sbp greater than 180 Last administered on 12/18/16 22:46; Admin Dose 10 MG; Start 12/18/16 at 23:00 JAZZY THOMAS MD Dec 18, 2016 23:25
[2016-12-19 05:50] LABS: ADD SCAN DIFF NO
[2016-12-19 05:53] LABS: BASOPHILS % 0.5 % (0.0-2.0); EOSINOPHILS # 0.3 10^3/ul (0.0-0.5); EOSINOPHILS % 8.1 % (0.0-7.0); HEMATOCRIT 31.1 % (42.0-52.0); LYMPHOCYTES # 1.2 10^3/ul (0.8-2.9); LYMPHOCYTES % 32.5 % (15.0-51.0); MEAN CORPUSCULAR HEMOGLOBIN 31.5 pg (29.0-33.0); MEAN CORPUSCULAR HGB CONC 32.2 g/dl (32.0-37.0); MEAN CORPUSCULAR VOLUME 98.1 fl (82.0-101.0); MONOCYTE # 0.4 10^3/ul (0.3-0.9); MONOCYTES % 10.2 % (0.0-11.0); NEUTROPHIL # 1.9 10^3/ul (1.6-7.5); NEUTROPHILS % 48.7 % (39.0-77.0); PLATELET COUNT 176 10^3/UL (140-415); RED BLOOD COUNT 3.17 10^6/ul (4.70-6.10); RED CELL DISTRIBUTION WIDTH 13.9 % (11.5-14.5); WHITE BLOOD COUNT 3.8 10^3/ul (4.8-10.8)
[2016-12-19] MEDS: PANTOPRAZOLE (EC) 40 MG TAB PO SCH (06:00)
[2016-12-19 06:12] LABS: POTASSIUM 4.4 mmol/L (3.5-5.1)
[2016-12-19 06:14] LABS: CREATININE 4.62 mg/dl (0.61-1.24)
[2016-12-19 06:15] LABS: CALCIUM 8.5 mg/dl (8.4-10.2)
[2016-12-19 07:19] LABS: MAGNESIUM 2.3 mg/dl (1.7-2.5); PHOSPHORUS 3.6 mg/dl (2.5-4.9)
[2016-12-19 08:03] VITALS: BP 173/77; RESP 17
[2016-12-19] MEDS: MULTIVIT/CA CARB/B CMPLX/FA TAB PO SCH (08:53)
[2016-12-19] MEDS: CALCIUM ACETATE 667 MG CAP PO SCH ×3 (08:53→23:31)
[2016-12-19] MEDS: DOCUSATE SODIUM 250 MG CAP PO SCH ×2 (08:53→23:30)
[2016-12-19] MEDS: NIFEdipine (XL) 60 MG TAB PO SCH (08:55)
[2016-12-19] MEDS: PIPER-TAZO 2.25 GM (PMX) 50 ML IVPB SCH ×2 (08:56→23:30)
[2016-12-19] MEDS: ASPIRIN (EC) 81 MG TAB PO SCH (08:56)
[2016-12-19] MEDS: SEVELAMER CARBONATE 0.8 GM PKT PO SCH ×3 (08:56→17:46)
[2016-12-19] MEDS ORDERED: ERGOCALCIFEROL 50,000 UNIT CAP PO SCH (09:00)
[2016-12-19] MEDS: HEPARIN 5,000 UNIT/0.5 ML SYG SC SCH ×2 (09:08→23:50)
[2016-12-19 10:13] VITALS: BP 128/53; PULSE 61
[2016-12-19] MEDS ORDERED: VANCOMYCIN 1 GM in NS 250 ML IVPB SCH (11:00)
--- NOTE | 2016-12-19 12:40 | CONS ---
Date/Time of Note Date/Time of Note DATE: 12/19/16 TIME: 12:37 Assessment/Plan Assessment/Plan Chief Complaint/Hosp Course SUBJECTIVE: No acute changes. Looks comfortable, no fevers. MICROBIOLOGY: Drainage from the left ear growing PSA/Enterococcus ANTIMICROBIALS: The patient is on: 1. Vancomycin. 2. Zosyn. PHYSICAL EXAMINATION: GENERAL: Chronically ill-appearing, elderly man in no distress. HEENT: Head atraumatic, normocephalic. Sclerae anicteric. Buccal mucosa dry. NECK: Supple. CHEST: Rise symmetrical. Breath sounds diminished to bases. HEART: S1, S2. ABDOMEN: Soft, bowel sounds present. EXTREMITIES: Without cyanosis. ASSESSMENT: 1. Left otomastoiditis. 2. End-stage renal disease, hemodialysis dependent. 3. Anemia. PLAN: The patient remains stable. Continue abx, add Cipro otic gtts DW staff Problems: Consultation Date/Type/Reason Admit Date/Time Dec 17, 2016 at 01:12 Initial Consult Date Type of Consultation: id Exam/Review of Systems Vital Signs Vitals Vital Signs Date Time Temp Pulse Resp B/P Pulse Ox O2 Delivery O2 Flow Rate FiO2 12/19/16 10:13 61 128/53 12/19/16 08:03 98.9 17 98 12/18/16 22:30 Room Air Intake and Output 12/18/16 12/18/16 12/19/16 14:59 22:59 06:59 Intake Total 450 ml 840 ml 250 ml Output Total 2900 ml Balance -2450 ml 840 ml 250 ml Results Result Diagram: 12/19/16 0518 12/19/16 0518 Results 24 hrs Laboratory Tests Test 12/19/16 05:15 12/19/16 05:18 Phosphorus Level 3.6 Magnesium Level 2.3 White Blood Count 3.8 L Red Blood Count 3.17 L Hemoglobin 10.0 L Hematocrit 31.1 L Mean Corpuscular Volume 98.1 Mean Corpuscular Hemoglobin 31.5 Mean Corpuscular Hemoglobin Concent 32.2 Red Cell Distribution Width 13.9 Platelet Count 176 Mean Platelet Volume 11.0 H Neutrophils % 48.7 Lymphocytes % 32.5 Monocytes % 10.2 Eosinophils % 8.1 H Basophils % 0.5 Nucleated Red Blood Cells % 0.0 Neutrophils # 1.9 Lymphocytes # 1.2 Monocytes # 0.4 Eosinophils # 0.3 Basophils # 0.0 Nucleated Red Blood Cells # 0.0 Sodium Level 138 Potassium Level 4.4 Chloride Level 97 Carbon Dioxide Level 29 Anion Gap 16 Blood Urea Nitrogen 36 #H Creatinine 4.62 #H Glucose Level 126 Calcium Level 8.5 Random Vancomycin Level 13.3 Medications Medications Current Medications Ondansetron HCl (Zofran Inj) 4 mg Q6H PRN IV NAUSEA AND/OR VOMITING Last administered on 12/17/16 12:06; Admin Dose 4 MG; Start 12/17/16 at 01:30 Acetaminophen (Tylenol Tab) 650 mg Q6H PRN PO PAIN LEVEL 1-3 OR FEVER; Start at 01:30 Acetaminophen/ Hydrocodone Bitart ([place] (5/325)) 1 tab Q6H PRN PO MODERATE PAIN LEVEL 4-6 Last administered on 12/18/16 10:24; Admin Dose 1 TAB; Start at 01:30 Morphine Sulfate (morphine) 2 mg Q4H PRN IV SEVERE PAIN LEVEL 7-10; Start 12/17 at 01:30 Docusate Sodium (Colace) 100 mg Q12H PRN PO CONSTIPATION Last administered on 20:00; Admin Dose 100 MG; Start 12/17/16 at 01:30 Magnesium Hydroxide (Milk Of Mag) 30 ml DAILY PRN PO CONSTIPATION; Start at 01:30 Pantoprazole (Protonix Tab) 40 mg DAILY@06 PO Last administered on 12/19/16 06 :00; Admin Dose 40 MG; Start 12/17/16 at 06:00 Heparin Sodium (Porcine) (Heparin (5000 Units/0.5 ml)) 5,000 unit Q12 SC Last administered on 12/19/16 09:08; Admin Dose 5,000 UNIT; Start 12/17/16 at 09:00 Aspirin (Halfprin) 81 mg DAILY PO Last administered on 12/19/16 08:56; Admin Dose 81 MG; Start 12/17/16 at 09:00 Calcium Acetate (Phoslo) 667 mg TID PO Last administered on 12/19/16 08:53; Admin Dose 667 MG; Start 12/17/16 at 09:00 Docusate Sodium (Colace) 250 mg BID PO Last administered on 12/19/16 08:53; Admin Dose 250 MG; Start 12/17/16 at 09:00 Ergocalciferol (Drisdol) 50,000 unit Q7D PO Last administered on 12/19/16 08: 56; Admin Dose 50,000 UNIT; Start 12/19/16 at 09:00 Multivit/Ca Carb/ B Cmplx/FA/Prenat (Cecilia-Sana) 1 tab DAILY PO Last administered on 12/19/16 08:53; Admin Dose 1 TAB; Start 12/17/16 at 09:00 Nifedipine 120 mg 120 mg DAILY PO Last administered on 12/19/16 08:55; Admin Dose 120 MG; Start 12/17/16 at 09:00 Piperacillin Sod/ Tazobactam Sod (Zosyn 2.25gm/ 50ml (Pmx)) 50 ml @ 100 mls/hr Q12 IVPB Last administered on 12/19/16 08:56; Admin Dose 100 MLS/HR; Start at 09:00 Hydralazine HCl (Apresoline) 25 mg Q4H PRN PO ELEVATED BLOOD PRESSURE Last administered on 12/18/16 20:00; Admin Dose 25 MG; Start 12/17/16 at 11:00 Atorvastatin Calcium (Lipitor) 40 mg HS PO Last administered on 12/18/16 20:00 ; Admin Dose 40 MG; Start 12/17/16 at 21:00 Hydralazine HCl (Apresoline) 10 mg Q4H PRN IV for sbp greater than 180 Last administered on 12/18/16 22:46; Admin Dose 10 MG; Start 12/18/16 at 23:00 Clonidine 0.2 mg 0.2 mg TID PO Last administered on 12/19/16 08:56; Admin Dose 0.2 MG; Start 12/19/16 at 09:00 Vancomycin HCl (Vancocin) 250 ml @ 125 mls/hr 11 IVPB Last administered on 11:30; Admin Dose 125 MLS/HR; Start 12/19/16 at 11:00; Stop 12/19/16 at 23:00 SANTIAGO FAUSTIN NP Dec 19, 2016 12:40
[2016-12-19 13:03] VITALS: BP 129/53; PULSE 67
--- NOTE | 2016-12-19 17:24 | PN ---
DATE: 12/19/2016 SUBJECTIVE: The patient is seen, feeling better, still has slight pain in the left ear, but overall condition is improving. The patient's ear culture came back with Pseudomonas aeruginosa and Entero coccus species. Cipro ear drops were added to the regimen. The patient is to see Dr. Duran, the ENT specialist, today. OBJECTIVE: VITAL SIGNS: Temperature 98.9, afebrile. Pulse 67, respirations 17, blood pressure 129/53, saturat ion 96%. At night, his blood pressure was in the 200s, and nursing staff stated that there is a dis crepancy between the blood pressure in the upper extremities and the lower extremities. GENERAL: The patient is legally blind. CARDIOVASCULAR: S1 and S2, regular rate. LUNGS: Clear bilaterally. ABDOMEN: Soft, nontender, thin. EXTREMITIES: No clubbing, cyanosis, or edema, contracted in the knees. HEENT: Left ear pain upon movement of his earlobe. LABORATORY DATA: White count is 3.8, hemoglobin 10, hematocrit 31, platelet count 176, neutrophils 59%, lymphocytes 33%. Chemistry: Sodium is 138, potassium 4.4, chloride 97, bicarbonate 29, BUN is 36, creatinine 4.62, glucose 126. Ear culture shows Pseudomonas aeruginosa pansensitive to all lis rachel antibiotics including cefepime, Zosyn, and ciprofloxacin. MRSA of the nares was negative. MEDICATIONS: 1. Ciprofloxacin otic b.i.d. to the left ear. 2. Vancomycin dose per pharmacy. 3. Drisdol 50,000 every week. 4. Catapres 0.2 t.i.d. 5. Hydralazine 10 mg IV q. 4 p.r.n. 6. Lipitor 40 mg at bedtime. 7. Sensipar 30 mg with dinner. 8. Hydralazine p.r.n. 9. Heparin 5000 units subq q. 12. 10. Aspirin 81 daily. 11. PhosLo 667 t.i.d. 12. Colace 250 b.i.d. 13. Cecilia-Sana 1 tab daily. 14. Nifedipine or Procardia-XL 120 daily. 15. Zosyn 2.25 IV q. 12, renally dose. 16. Renvela 0.8 t.i.d. meals. 17. Protonix 40 mg daily. 18. Zofran p.r.n. 19. Tylenol p.r.n. 20. [place] p.r.n. 21. Morphine p.r.n. 22. Milk of magnesia p.r.n. 23. Vancomycin dose per pharmacy. ASSESSMENT AND PLAN: This is a 66-year-old male with history of end-stage renal disease, d iabetes mellitus, hypertension, legally blind, who presented with left ear pain and was found to hav e otomastoiditis. Organism is Pseudomonas aeruginosa and Enterococcus. 1. Left ear mastoiditis. Continue above antibiotics as it appears to be responding to it. Duratio n of IV antibiotics per ID. ENT was consulted, awaiting recommendations. 2. End-stage renal disease. He will receive dialysis every Saturday, , and Saturday. Next dialysis planned for tomorrow. 3. Hypertension. Medication has been titrated up per nephrology. Observe. May consider angiograp hy of the vasculature to see if there is any evidence of stenosis as there is discrepancy with the p atient's upper and lower extremity blood pressures. May consider cardiology input. Again, titrate blood pressure medication up, blood pressure improved. 4. Dyslipidemia. Continue statin. 5. Diabetes mellitus. Hemoglobin A1c is good at 6.5. Glucose level in the labs is normal around 1 26. 6. Continue deep vein thrombosis prophylaxis and gastrointestinal prophylaxis. 7. Monitor the patient's p.o. intake. Encourage him to eat more. We will add Nepro shakes. We wi ll follow. Dictated By: MARY DUPONT/SHARYN Conf#: [id number] DID#: [id number]
[2016-12-19] MEDS: CINACALCET 30 MG TAB PO SCH (17:46)
[2016-12-19 20:56] VITALS: BP 113/55; RESP 18
[2016-12-19] MEDS ORDERED: CIPROFLOXACIN HCL OTIC DROP 0.25 ML LEFT EAR SCH (21:00)
--- NOTE | 2016-12-19 23:09 | CONS ---
Date/Time of Note Date/Time of Note DATE: 12/19/16 TIME: 23:09 Assessment/Plan Assessment/Plan Chief Complaint/Hosp Course IMPRESSION: 1. The patient has otomastoiditis. 2. Endstage renal disease. 3. Hypertension. 4. Diabetes mellitus. 5. Legal blindness. 6. The patient has anemia. 7. Neutropenia. 8. AV fistula in left upper extremity. 9. Hemodialysis 3 times a week, Saturday, , Saturday. plan hd am Problems: Consultation Date/Type/Reason Admit Date/Time Dec 17, 2016 at 01:12 Type of Consultation: renal 24 HR Interval Summary Constitutional: no complaints Exam/Review of Systems Vital Signs Vitals Vital Signs Date Time Temp Pulse Resp B/P Pulse Ox O2 Delivery O2 Flow Rate FiO2 12/19/16 20:56 97.8 50 18 113/55 97 12/18/16 22:30 Room Air Intake and Output 12/18/16 12/18/16 12/19/16 15:00 23:00 07:00 Intake Total 450 ml 840 ml 250 ml Output Total 2900 ml Balance -2450 ml 840 ml 250 ml Exam Respiratory: clear to auscultation Cardiovascular: regular rate and rhythm Gastrointestinal: bowel sounds (+), soft Extremities: No edema Results Result Diagram: 12/19/1618 12/19/1618 Results 24 hrs Laboratory Tests Test 12/19/16 05:15 12/19/16 05:18 Phosphorus Level 3.6 Magnesium Level 2.3 White Blood Count 3.8 L Red Blood Count 3.17 L Hemoglobin 10.0 L Hematocrit 31.1 L Mean Corpuscular Volume 98.1 Mean Corpuscular Hemoglobin 31.5 Mean Corpuscular Hemoglobin Concent 32.2 Red Cell Distribution Width 13.9 Platelet Count 176 Mean Platelet Volume 11.0 H Neutrophils % 48.7 Lymphocytes % 32.5 Monocytes % 10.2 Eosinophils % 8.1 H Basophils % 0.5 Nucleated Red Blood Cells % 0.0 Neutrophils # 1.9 Lymphocytes # 1.2 Monocytes # 0.4 Eosinophils # 0.3 Basophils # 0.0 Nucleated Red Blood Cells # 0.0 Sodium Level 138 Potassium Level 4.4 Chloride Level 97 Carbon Dioxide Level 29 Anion Gap 16 Blood Urea Nitrogen 36 #H Creatinine 4.62 #H Glucose Level 126 Calcium Level 8.5 Random Vancomycin Level 13.3 Medications Medications Current Medications Ondansetron HCl (Zofran Inj) 4 mg Q6H PRN IV NAUSEA AND/OR VOMITING Last administered on 12/17/16 12:06; Admin Dose 4 MG; Start 12/17/16 at 01:30 Acetaminophen (Tylenol Tab) 650 mg Q6H PRN PO PAIN LEVEL 1-3 OR FEVER; Start at 01:30 Acetaminophen/ Hydrocodone Bitart ([place] (5/325)) 1 tab Q6H PRN PO MODERATE PAIN LEVEL 4-6 Last administered on 12/18/16 10:24; Admin Dose 1 TAB; Start at 01:30 Morphine Sulfate (morphine) 2 mg Q4H PRN IV SEVERE PAIN LEVEL 7-10; Start 12/17 at 01:30 Docusate Sodium (Colace) 100 mg Q12H PRN PO CONSTIPATION Last administered on 20:00; Admin Dose 100 MG; Start 12/17/16 at 01:30 Magnesium Hydroxide (Milk Of Mag) 30 ml DAILY PRN PO CONSTIPATION; Start at 01:30 Pantoprazole (Protonix Tab) 40 mg DAILY@06 PO Last administered on 12/19/16 06 :00; Admin Dose 40 MG; Start 12/17/16 at 06:00 Heparin Sodium (Porcine) (Heparin (5000 Units/0.5 ml)) 5,000 unit Q12 SC Last administered on 12/19/16 09:08; Admin Dose 5,000 UNIT; Start 12/17/16 at 09:00 Aspirin (Halfprin) 81 mg DAILY PO Last administered on 12/19/16 08:56; Admin Dose 81 MG; Start 12/17/16 at 09:00 Calcium Acetate (Phoslo) 667 mg TID PO Last administered on 12/19/16 12:59; Admin Dose 667 MG; Start 12/17/16 at 09:00 Docusate Sodium (Colace) 250 mg BID PO Last administered on 12/19/16 08:53; Admin Dose 250 MG; Start 12/17/16 at 09:00 Ergocalciferol (Drisdol) 50,000 unit Q7D PO Last administered on 12/19/16 08: 56; Admin Dose 50,000 UNIT; Start 12/19/16 at 09:00 Multivit/Ca Carb/ B Cmplx/FA/Prenat (Cecilia-Sana) 1 tab DAILY PO Last administered on 12/19/16 08:53; Admin Dose 1 TAB; Start 12/17/16 at 09:00 Nifedipine 120 mg 120 mg DAILY PO Last administered on 12/19/16 08:55; Admin Dose 120 MG; Start 12/17/16 at 09:00 Piperacillin Sod/ Tazobactam Sod (Zosyn 2.25gm/ 50ml (Pmx)) 50 ml @ 100 mls/hr Q12 IVPB Last administered on 12/19/16 08:56; Admin Dose 100 MLS/HR; Start at 09:00 Hydralazine HCl (Apresoline) 25 mg Q4H PRN PO ELEVATED BLOOD PRESSURE Last administered on 12/18/16 20:00; Admin Dose 25 MG; Start 12/17/16 at 11:00 Atorvastatin Calcium (Lipitor) 40 mg HS PO Last administered on 12/18/16 20:00 ; Admin Dose 40 MG; Start 12/17/16 at 21:00 Hydralazine HCl (Apresoline) 10 mg Q4H PRN IV for sbp greater than 180 Last administered on 12/18/16 22:46; Admin Dose 10 MG; Start 12/18/16 at 23:00 Clonidine (Catapres) 0.2 mg TID PO Last administered on 12/19/16 13:03; Admin Dose 0.2 MG; Start 12/19/16 at 09:00 Ciprofloxacin HCl (Ciprofloxacin HCl Otic) 1 drop BID LEFT EAR ; Start 12/19/16 at 21:00 JAZZY THOMAS MD Dec 19, 2016 23:09
[2016-12-19] MEDS: ATORVASTATIN 40 MG TAB PO SCH (23:30)
[2016-12-20] VITALS (9 sets, daily range): BP systolic 122–198; BP diastolic 32–99; PULSE 56–69; RESP 18–20
[2016-12-20 06:02] LABS: ADD SCAN DIFF NO
[2016-12-20 06:17] LABS: EOSINOPHILS # 0.3 10^3/ul (0.0-0.5); EOSINOPHILS % 9.1 % (0.0-7.0); HEMATOCRIT 31.5 % (42.0-52.0); HEMOGLOBIN 10.4 g/dl (14.0-18.0); LYMPHOCYTES # 1.3 10^3/ul (0.8-2.9); LYMPHOCYTES % 43.5 % (15.0-51.0); MEAN CORPUSCULAR HEMOGLOBIN 31.6 pg (29.0-33.0); MEAN CORPUSCULAR VOLUME 95.7 fl (82.0-101.0); MEAN PLATELET VOLUME 11.3 fl (7.4-10.4); MONOCYTE # 0.3 10^3/ul (0.3-0.9); MONOCYTES % 10.1 % (0.0-11.0); NEUTROPHIL # 1.1 10^3/ul (1.6-7.5); PLATELET COUNT 174 10^3/UL (140-415); RED BLOOD COUNT 3.29 10^6/ul (4.70-6.10); RED CELL DISTRIBUTION WIDTH 13.5 % (11.5-14.5); WHITE BLOOD COUNT 3.1 10^3/ul (4.8-10.8)
[2016-12-20 06:26] LABS: MAGNESIUM 2.3 mg/dl (1.7-2.5); PHOSPHORUS 4.3 mg/dl (2.5-4.9)
[2016-12-20] MEDS: PANTOPRAZOLE (EC) 40 MG TAB PO SCH (06:32)
[2016-12-20 06:34] LABS: POTASSIUM 5.1 mmol/L (3.5-5.1)
[2016-12-20 06:37] LABS: CREATININE 6.33 mg/dl (0.61-1.24)
[2016-12-20 06:38] LABS: CALCIUM 8.7 mg/dl (8.4-10.2)
--- NOTE | 2016-12-20 08:30 | HP ---
DATE OF ADMISSION: 12/17/2016 HISTORY OF PRESENT ILLNESS: A 66-year-old gentleman with history of end-stage renal disease on hemo dialysis with diabetes mellitus and hypertension that over the last several weeks has been complaini ng of increasing left-sided ear pain. He was seen in the emergency department with a CT scan demons trating left mastoid effusion. The patient has been admitted and placed on antibiotics. Cultures d emonstrated pseudomonas. Consultations obtained. PAST MEDICAL HISTORY: Diabetes, hypertension, renal failure, anemia, blindness, left AV shunt. SURGICAL HISTORY: Cholecystectomy, AV fistula. ALLERGIES: NO KNOWN DRUG ALLERGIES. FAMILY HISTORY: Diabetes mellitus. MEDICATIONS: 1. Aspirin. 2. Clonidine. 3. Enalapril 4. Hydralazine. 5. Nifedipine. 6. Protonix. 7. Renvela. 8. Sensipar. REVIEW OF SYSTEMS: As noted. PHYSICAL EXAMINATION: VITAL SIGNS: Temperature is 97, pulse 66, respirations 18. GENERAL: No acute distress. HEENT: Neck no lymphadenopathy. Ears: There is fluid draining from the left external auditory canal with granulation tissue present. No mastoid tenderness. CHEST: Clear to auscultation. LABORATORY DATA: White blood cell count of 3.4. A CT scan demonstrates moderate cortical atrophy with left otomastoid disease. ASSESSMENT: End-stage renal failure with diabetes and a history of left ear infection, culture posi tive for Pseudomonas. I agree with continuation of vancomycin and Zosyn. We will start the patient on Ciprodex ear drops. Suggested a CT scan of the temporal bone if not demonstrating improvement i n 2 to 3 days. Dictated By: TRUDY DUCKWORTH/SHARYN Conf#: [id number] DID#: [id number]
[2016-12-20] MEDS: CALCIUM ACETATE 667 MG CAP PO SCH ×3 (08:47→20:29)
[2016-12-20] MEDS: SEVELAMER CARBONATE 0.8 GM PKT PO SCH ×3 (08:47→17:34)
[2016-12-20] MEDS: ASPIRIN (EC) 81 MG TAB PO SCH (08:47)
[2016-12-20] MEDS: DOCUSATE SODIUM 250 MG CAP PO SCH ×2 (08:47→20:28)
[2016-12-20] MEDS: MULTIVIT/CA CARB/B CMPLX/FA TAB PO SCH (08:47)
[2016-12-20] MEDS: CIPROFLOXACIN HCL OTIC DROP 0.25 ML LEFT EAR SCH ×3 (08:48→20:29)
[2016-12-20] MEDS: HEPARIN 5,000 UNIT/0.5 ML SYG SC SCH ×2 (08:57→20:33)
[2016-12-20] MEDS: PIPER-TAZO 2.25 GM (PMX) 50 ML IVPB SCH (09:00)
[2016-12-20] MEDS: NIFEdipine (XL) 60 MG TAB PO SCH (09:00)
[2016-12-20] MEDS: HYDROCODONE/APAP (5/325) TAB PO PRN (09:34)
--- NOTE | 2016-12-20 13:39 | CONS ---
Date/Time of Note Date/Time of Note DATE: 12/20/16 TIME: 13:38 Assessment/Plan Assessment/Plan Chief Complaint/Hosp Course SUBJECTIVE: No acute changes. Looks comfortable, no fevers. MICROBIOLOGY: Drainage from the left ear growing PSA/Enterococcus ANTIMICROBIALS: The patient is on: 1. Vancomycin. 2. Zosyn. PHYSICAL EXAMINATION: GENERAL: Chronically ill-appearing, elderly man in no distress. HEENT: Head atraumatic, normocephalic. Sclerae anicteric. Buccal mucosa dry. NECK: Supple. CHEST: Rise symmetrical. Breath sounds diminished to bases. HEART: S1, S2. ABDOMEN: Soft, bowel sounds present. EXTREMITIES: Without cyanosis. ASSESSMENT: 1. Left otomastoiditis. 2. End-stage renal disease, hemodialysis dependent. 3. Anemia. PLAN: The patient remains stable. Change Zosyn to Cipro, continue Vanco, continue otic gtts DW staff Problems: Consultation Date/Type/Reason Admit Date/Time Dec 17, 2016 at 01:12 Type of Consultation: id Exam/Review of Systems Vital Signs Vitals Vital Signs Date Time Temp Pulse Resp B/P Pulse Ox O2 Delivery O2 Flow Rate FiO2 12/20/16 07:41 98.0 20 122/55 98 12/19/16 20:56 50 12/18/16 22:30 Room Air Intake and Output 12/19/16 12/19/16 12/20/16 15:00 23:00 07:00 Intake Total 1340 ml 210 ml Balance 1340 ml 210 ml Results Result Diagram: 12/20/16 0535 12/20/16 0535 Results 24 hrs Laboratory Tests Test 12/20/16 05:35 12/20/16 05:53 White Blood Count 3.1 L Red Blood Count 3.29 L Hemoglobin 10.4 L Hematocrit 31.5 L Mean Corpuscular Volume 95.7 Mean Corpuscular Hemoglobin 31.6 Mean Corpuscular Hemoglobin Concent 33.0 Red Cell Distribution Width 13.5 Platelet Count 174 Mean Platelet Volume 11.3 H Neutrophils % 36.0 L Lymphocytes % 43.5 Monocytes % 10.1 Eosinophils % 9.1 H Basophils % 1.0 Nucleated Red Blood Cells % 0.0 Neutrophils # 1.1 L Lymphocytes # 1.3 Monocytes # 0.3 Eosinophils # 0.3 Basophils # 0.0 Nucleated Red Blood Cells # 0.0 Sodium Level 137 Potassium Level 5.1 Chloride Level 97 Carbon Dioxide Level 25 Anion Gap 20 H Blood Urea Nitrogen 51 H Creatinine 6.33 H Glucose Level 101 Calcium Level 8.7 Phosphorus Level 4.3 Magnesium Level 2.3 Medications Medications Current Medications Ondansetron HCl (Zofran Inj) 4 mg Q6H PRN IV NAUSEA AND/OR VOMITING Last administered on 12/17/16 12:06; Admin Dose 4 MG; Start 12/17/16 at 01:30 Acetaminophen (Tylenol Tab) 650 mg Q6H PRN PO PAIN LEVEL 1-3 OR FEVER; Start at 01:30 Acetaminophen/ Hydrocodone Bitart ([place] (5/325)) 1 tab Q6H PRN PO MODERATE PAIN LEVEL 4-6 Last administered on 12/20/16 09:34; Admin Dose 1 TAB; Start at 01:30 Morphine Sulfate (morphine) 2 mg Q4H PRN IV SEVERE PAIN LEVEL 7-10; Start 12/17 at 01:30 Docusate Sodium (Colace) 100 mg Q12H PRN PO CONSTIPATION Last administered on 20:00; Admin Dose 100 MG; Start 12/17/16 at 01:30 Magnesium Hydroxide (Milk Of Mag) 30 ml DAILY PRN PO CONSTIPATION; Start at 01:30 Pantoprazole (Protonix Tab) 40 mg DAILY@06 PO Last administered on 12/20/16 06 :32; Admin Dose 40 MG; Start 12/17/16 at 06:00 Heparin Sodium (Porcine) (Heparin (5000 Units/0.5 ml)) 5,000 unit Q12 SC Last administered on 12/20/16 08:57; Admin Dose 5,000 UNIT; Start 12/17/16 at 09:00 Aspirin (Halfprin) 81 mg DAILY PO Last administered on 12/20/16 08:47; Admin Dose 81 MG; Start 12/17/16 at 09:00 Calcium Acetate (Phoslo) 667 mg TID PO Last administered on 12/20/16 08:47; Admin Dose 667 MG; Start 12/17/16 at 09:00 Docusate Sodium (Colace) 250 mg BID PO Last administered on 12/20/16 08:47; Admin Dose 250 MG; Start 12/17/16 at 09:00 Ergocalciferol (Drisdol) 50,000 unit Q7D PO Last administered on 12/19/16 08: 56; Admin Dose 50,000 UNIT; Start 12/19/16 at 09:00 Multivit/Ca Carb/ B Cmplx/FA/Prenat (Cecilia-Sana) 1 tab DAILY PO Last administered on 12/20/16 08:47; Admin Dose 1 TAB; Start 12/17/16 at 09:00 Nifedipine 120 mg 120 mg DAILY PO Last administered on 12/19/16 08:55; Admin Dose 120 MG; Start 12/17/16 at 09:00 Piperacillin Sod/ Tazobactam Sod (Zosyn 2.25gm/ 50ml (Pmx)) 50 ml @ 100 mls/hr Q12 IVPB Last administered on 12/20/16 09:00; Admin Dose 100 MLS/HR; Start at 09:00 Hydralazine HCl (Apresoline) 25 mg Q4H PRN PO ELEVATED BLOOD PRESSURE Last administered on 12/18/16 20:00; Admin Dose 25 MG; Start 12/17/16 at 11:00 Atorvastatin Calcium (Lipitor) 40 mg HS PO Last administered on 12/19/16 23:30 ; Admin Dose 40 MG; Start 12/17/16 at 21:00 Hydralazine HCl (Apresoline) 10 mg Q4H PRN IV for sbp greater than 180 Last administered on 12/18/16 22:46; Admin Dose 10 MG; Start 12/18/16 at 23:00 Clonidine (Catapres) 0.2 mg TID PO Last administered on 12/19/16 13:03; Admin Dose 0.2 MG; Start 12/19/16 at 09:00 Ciprofloxacin HCl (Ciprofloxacin HCl Otic) 1 drop TID LEFT EAR Last administered on 12/20/16 08:48; Admin Dose 1 DROP; Start 12/20/16 at 09:00 SANTIAGO FAUSTIN NP Dec 20, 2016 13:39
[2016-12-20] MEDS ORDERED: CIPROFLOXACIN 250 MG TAB PO ONE (14:00)
--- NOTE | 2016-12-20 16:48 | CONS ---
Date/Time of Note Date/Time of Note DATE: 12/20/16 TIME: 16:48 Assessment/Plan Assessment/Plan Chief Complaint/Hosp Course IMPRESSION: 1. The patient has otomastoiditis. 2. Endstage renal disease. 3. Hypertension. 4. Diabetes mellitus. 5. Legal blindness. 6. The patient has anemia. 7. Neutropenia. 8. AV fistula in left upper extremity. 9. Hemodialysis 3 times a week, Saturday, , Saturday. plan hd Problems: Consultation Date/Type/Reason Admit Date/Time Dec 17, 2016 at 01:12 Type of Consultation: RENAL 24 HR Interval Summary Constitutional: improved Exam/Review of Systems Vital Signs Vitals Vital Signs Date Time Temp Pulse Resp B/P Pulse Ox O2 Delivery O2 Flow Rate FiO2 12/20/16 16:00 60 12/20/16 13:30 20 12/20/16 07:41 98.0 122/55 98 12/18/16 22:30 Room Air Intake and Output 12/19/16 12/19/16 12/20/16 15:00 23:00 07:00 Intake Total 1340 ml 210 ml Balance 1340 ml 210 ml Exam Neck: supple Cardiovascular: regular rate and rhythm Gastrointestinal: soft Musculoskeletal: nl extremities to inspection Extremities: No edema Results Result Diagram: 12/20/16 0535 12/20/16 0535 Results 24 hrs Laboratory Tests Test 12/20/16 05:35 12/20/16 05:53 White Blood Count 3.1 L Red Blood Count 3.29 L Hemoglobin 10.4 L Hematocrit 31.5 L Mean Corpuscular Volume 95.7 Mean Corpuscular Hemoglobin 31.6 Mean Corpuscular Hemoglobin Concent 33.0 Red Cell Distribution Width 13.5 Platelet Count 174 Mean Platelet Volume 11.3 H Neutrophils % 36.0 L Lymphocytes % 43.5 Monocytes % 10.1 Eosinophils % 9.1 H Basophils % 1.0 Nucleated Red Blood Cells % 0.0 Neutrophils # 1.1 L Lymphocytes # 1.3 Monocytes # 0.3 Eosinophils # 0.3 Basophils # 0.0 Nucleated Red Blood Cells # 0.0 Sodium Level 137 Potassium Level 5.1 Chloride Level 97 Carbon Dioxide Level 25 Anion Gap 20 H Blood Urea Nitrogen 51 H Creatinine 6.33 H Glucose Level 101 Calcium Level 8.7 Phosphorus Level 4.3 Magnesium Level 2.3 Medications Medications Current Medications Ondansetron HCl (Zofran Inj) 4 mg Q6H PRN IV NAUSEA AND/OR VOMITING Last administered on 12/17/16 12:06; Admin Dose 4 MG; Start 12/17/16 at 01:30 Acetaminophen (Tylenol Tab) 650 mg Q6H PRN PO PAIN LEVEL 1-3 OR FEVER; Start at 01:30 Acetaminophen/ Hydrocodone Bitart ([place] (5/325)) 1 tab Q6H PRN PO MODERATE PAIN LEVEL 4-6 Last administered on 12/20/16 09:34; Admin Dose 1 TAB; Start at 01:30 Morphine Sulfate (morphine) 2 mg Q4H PRN IV SEVERE PAIN LEVEL 7-10; Start 12/17 at 01:30 Docusate Sodium (Colace) 100 mg Q12H PRN PO CONSTIPATION Last administered on 20:00; Admin Dose 100 MG; Start 12/17/16 at 01:30 Magnesium Hydroxide (Milk Of Mag) 30 ml DAILY PRN PO CONSTIPATION; Start at 01:30 Pantoprazole (Protonix Tab) 40 mg DAILY@06 PO Last administered on 12/20/16 06 :32; Admin Dose 40 MG; Start 12/17/16 at 06:00 Heparin Sodium (Porcine) (Heparin (5000 Units/0.5 ml)) 5,000 unit Q12 SC Last administered on 12/20/16 08:57; Admin Dose 5,000 UNIT; Start 12/17/16 at 09:00 Aspirin (Halfprin) 81 mg DAILY PO Last administered on 12/20/16 08:47; Admin Dose 81 MG; Start 12/17/16 at 09:00 Calcium Acetate (Phoslo) 667 mg TID PO Last administered on 12/20/16 08:47; Admin Dose 667 MG; Start 12/17/16 at 09:00 Docusate Sodium (Colace) 250 mg BID PO Last administered on 12/20/16 08:47; Admin Dose 250 MG; Start 12/17/16 at 09:00 Ergocalciferol (Drisdol) 50,000 unit Q7D PO Last administered on 12/19/16 08: 56; Admin Dose 50,000 UNIT; Start 12/19/16 at 09:00 Multivit/Ca Carb/ B Cmplx/FA/Prenat (Cecilia-Sana) 1 tab DAILY PO Last administered on 12/20/16 08:47; Admin Dose 1 TAB; Start 12/17/16 at 09:00 Nifedipine (Procardia Xl) 120 mg DAILY PO Last administered on 12/19/16 08:55 ; Admin Dose 120 MG; Start 12/17/16 at 09:00 Hydralazine HCl (Apresoline) 25 mg Q4H PRN PO ELEVATED BLOOD PRESSURE Last administered on 12/18/16 20:00; Admin Dose 25 MG; Start 12/17/16 at 11:00 Atorvastatin Calcium (Lipitor) 40 mg HS PO Last administered on 12/19/16 23:30 ; Admin Dose 40 MG; Start 12/17/16 at 21:00 Hydralazine HCl (Apresoline) 10 mg Q4H PRN IV for sbp greater than 180 Last administered on 12/18/16 22:46; Admin Dose 10 MG; Start 12/18/16 at 23:00 Clonidine (Catapres) 0.2 mg TID PO Last administered on 12/19/16 13:03; Admin Dose 0.2 MG; Start 12/19/16 at 09:00 Ciprofloxacin HCl (Ciprofloxacin HCl Otic) 1 drop TID LEFT EAR Last administered on 12/20/16 15:30; Admin Dose 1 DROP; Start 12/20/16 at 09:00 Ciprofloxacin (Cipro) 250 mg DAILY@06 PO ; Start 12/21/16 at 06:00 JAZZY THOMAS MD Dec 20, 2016 16:48
[2016-12-20] MEDS: CINACALCET 30 MG TAB PO SCH (17:34)
--- NOTE | 2016-12-20 18:42 | PN ---
DATE: 12/20/2016 SUBJECTIVE: Patient seen, feeling better, still slight left periauricular pain. Patient seen by Dr. Renee BILLY noted recommendations, also noted switch of the antibiotics by ____, nurse practition er. PHYSICAL EXAMINATION: VITAL SIGNS: Temperature is 98, pulse is 69, respirations 20, blood pressure 122/55, saturation 98% . GENERAL: No acute distress. HEENT: Normocephalic, atraumatic. The patient is legally blind. Slight pain below the left ear. CARDIOVASCULAR: S1 and S2, regular rate. LUNGS: Clear. ABDOMEN: Soft, nontender. EXTREMITIES: Contracted in the knees. LABORATORY DATA: White count is 3.1, hemoglobin 10.4, hematocrit 32, platelet count 174, neutrophil s 36%, lymphocytes 44%. Chemistry: Sodium 137, potassium 5.1, chloride 97, bicarbonate 25, BUN is 51, creatinine 6.33, glucose 101. Again, ear culture shows Pseudomonas aeruginosa, now Zosyn was sw itched to Cipro. The patient is also on vancomycin for Enterococcus species. CURRENT MEDICATIONS: Include: 1. Cipro 250 daily. This is renally dosed. 2. Ciprofloxacin drops t.i.d. to the left ear. 3. Drisdol 50,000 every week. 4. Catapres 0.2 t.i.d. 5. Hydralazine p.r.n. 6. Lipitor 40 mg at bedtime. 7. Sensipar 30 at bedtime now. 8. Hydralazine 25 p.r.n. 9. Heparin 5000 units subq q.12h. 10. Aspirin 81 mg daily. 11. PhosLo 667 t.i.d. 12. Colace 250 b.i.d. 13. Cecilia-Sana 1 tab daily. 14. Procardia-XL 120 daily. 15. Renvela 0.8 t.i.d. meals. 16. Protonix 40 mg daily. 17. Zofran p.r.n. 18. Tylenol p.r.n. 19. [place] p.r.n. 20. Morphine p.r.n. 15. Colace p.r.n. 16. Milk of magnesia p.r.n. 17. Vancomycin as directed. ASSESSMENT AND PLAN: 1. This is a 66-year-old male with history of end-stage renal disease, diabetes mellitus, hypertension, legally blind, who presented with left ear pain, was found to have otomastoiditis, org anism pseudomonas and Enterococcus. 2. Left ear mastoiditis. Continue Cipro and vancomycin. Again, his symptoms are not improved. Dr Juno Duran recommended a CT scan of the temporal bone. Continue pain control and monitor symptomatol ogy closely. 3. End-stage renal disease status post hemodialysis today. Follow up a.m. labs. 4. Dyslipidemia, on statin. 5. Diabetes mellitus, controlled. 6. Continue deep vein thrombosis prophylaxis and gastrointestinal prophylaxis. 7. Clinically improved. Continue to monitor. We will discuss with ID duration of antibiotics. Dictated By: MARY DUPONT/SHARYN Conf#: [id number] DID#: [id number]
[2016-12-20] MEDS: ATORVASTATIN 40 MG TAB PO SCH (20:29)
[2016-12-21 05:29] LABS: ADD SCAN DIFF NO
[2016-12-21 05:47] LABS: ABNORMAL IP MESSAGE 1; BASOPHILS % 1.1 % (0.0-2.0); EOSINOPHILS # 0.3 10^3/ul (0.0-0.5); EOSINOPHILS % 11.6 % (0.0-7.0); HEMATOCRIT 30.5 % (42.0-52.0); LYMPHOCYTES # 1.3 10^3/ul (0.8-2.9); LYMPHOCYTES % 44.9 % (15.0-51.0); MEAN CORPUSCULAR HEMOGLOBIN 30.7 pg (29.0-33.0); MEAN CORPUSCULAR HGB CONC 32.8 g/dl (32.0-37.0); MEAN CORPUSCULAR VOLUME 93.6 fl (82.0-101.0); MEAN PLATELET VOLUME 11.2 fl (7.4-10.4); MONOCYTE # 0.3 10^3/ul (0.3-0.9); MONOCYTES % 10.9 % (0.0-11.0); NEUTROPHIL # 0.9 10^3/ul (1.6-7.5); PLATELET COUNT 167 10^3/UL (140-415); RED BLOOD COUNT 3.26 10^6/ul (4.70-6.10); RED CELL DISTRIBUTION WIDTH 13.5 % (11.5-14.5); WHITE BLOOD COUNT 2.9 10^3/ul (4.8-10.8)
[2016-12-21] MEDS: CIPROFLOXACIN 250 MG TAB PO SCH (05:55)
[2016-12-21] MEDS: PANTOPRAZOLE (EC) 40 MG TAB PO SCH (05:55)
[2016-12-21 06:11] LABS: POTASSIUM 4.2 mmol/L (3.5-5.1)
[2016-12-21 06:14] LABS: CREATININE 4.6 mg/dl (0.61-1.24)
[2016-12-21 06:15] LABS: CALCIUM 8.9 mg/dl (8.4-10.2)
[2016-12-21 06:17] LABS: MAGNESIUM 2.1 mg/dl (1.7-2.5); PHOSPHORUS 4.2 mg/dl (2.5-4.9)
[2016-12-21 06:19] LABS: NEUTROPHILS % 31.5 % (39.0-77.0)
[2016-12-21 07:00] VITALS: BP 130/53; RESP 20
[2016-12-21] MEDS: SEVELAMER CARBONATE 0.8 GM PKT PO SCH ×3 (08:45→18:14)
[2016-12-21] MEDS: DOCUSATE SODIUM 250 MG CAP PO SCH ×2 (08:45→20:58)
[2016-12-21] MEDS: MULTIVIT/CA CARB/B CMPLX/FA TAB PO SCH (08:46)
[2016-12-21] MEDS: ASPIRIN (EC) 81 MG TAB PO SCH (08:46)
[2016-12-21] MEDS: CALCIUM ACETATE 667 MG CAP PO SCH ×3 (08:46→20:58)
[2016-12-21] MEDS: NIFEdipine (XL) 60 MG TAB PO SCH (08:47)
[2016-12-21] MEDS: HEPARIN 5,000 UNIT/0.5 ML SYG SC SCH ×2 (08:49→21:05)
[2016-12-21] MEDS: CIPROFLOXACIN HCL OTIC DROP 0.25 ML LEFT EAR SCH ×3 (10:44→20:59)
--- NOTE | 2016-12-21 11:44 | CONS ---
Date/Time of Note Date/Time of Note DATE: 12/21/16 TIME: 11:43 Assessment/Plan Assessment/Plan Chief Complaint/Hosp Course SUBJECTIVE: No acute changes, no fevers, less pain L ear. MICROBIOLOGY: Drainage from the left ear growing PSA/Enterococcus ANTIMICROBIALS: The patient is on: 1. Vancomycin. 2. Cipro. PHYSICAL EXAMINATION: GENERAL: Chronically ill-appearing, elderly man in no distress. HEENT: Head atraumatic, normocephalic. Sclerae anicteric. Buccal mucosa dry. NECK: Supple. CHEST: Rise symmetrical. Breath sounds diminished to bases. HEART: S1, S2. ABDOMEN: Soft, bowel sounds present. EXTREMITIES: Without cyanosis. ASSESSMENT: 1. Left otomastoiditis. 2. End-stage renal disease, hemodialysis dependent. 3. Anemia. PLAN: The patient remains stable, continue abx, continue otic gtts DW staff Problems: Consultation Date/Type/Reason Admit Date/Time Dec 17, 2016 at 01:12 Type of Consultation: ID Exam/Review of Systems Vital Signs Vitals Vital Signs Date Time Temp Pulse Resp B/P Pulse Ox O2 Delivery O2 Flow Rate FiO2 12/21/16 07:00 98.3 51 20 130/53 99 12/18/16 22:30 Room Air Intake and Output 12/20/16 12/20/16 12/21/16 15:00 23:00 07:00 Intake Total 50 ml 500 ml 200 ml Output Total 2500 ml Balance 50 ml -2000 ml 200 ml Results Result Diagram: 12/21/16 0455 12/21/16 0455 Results 24 hrs Laboratory Tests Test 12/21/16 04:55 White Blood Count 2.9 L Red Blood Count 3.26 L Hemoglobin 10.0 L Hematocrit 30.5 L Mean Corpuscular Volume 93.6 Mean Corpuscular Hemoglobin 30.7 Mean Corpuscular Hemoglobin Concent 32.8 Red Cell Distribution Width 13.5 Platelet Count 167 Mean Platelet Volume 11.2 H Neutrophils % 31.5 L Lymphocytes % 44.9 Monocytes % 10.9 Eosinophils % 11.6 H Basophils % 1.1 Nucleated Red Blood Cells % 0.0 Neutrophils # 0.9 L Lymphocytes # 1.3 Monocytes # 0.3 Eosinophils # 0.3 Basophils # 0.0 Nucleated Red Blood Cells # 0.0 Sodium Level 137 Potassium Level 4.2 Chloride Level 95 L Carbon Dioxide Level 31 Anion Gap 15 Blood Urea Nitrogen 31 #H Creatinine 4.60 #H Glucose Level 111 Calcium Level 8.9 Phosphorus Level 4.2 Magnesium Level 2.1 Medications Medications Current Medications Ondansetron HCl (Zofran Inj) 4 mg Q6H PRN IV NAUSEA AND/OR VOMITING Last administered on 12/17/16 12:06; Admin Dose 4 MG; Start 12/17/16 at 01:30 Acetaminophen (Tylenol Tab) 650 mg Q6H PRN PO PAIN LEVEL 1-3 OR FEVER; Start at 01:30 Acetaminophen/ Hydrocodone Bitart ([place] (5/325)) 1 tab Q6H PRN PO MODERATE PAIN LEVEL 4-6 Last administered on 12/20/16 09:34; Admin Dose 1 TAB; Start at 01:30 Morphine Sulfate (morphine) 2 mg Q4H PRN IV SEVERE PAIN LEVEL 7-10; Start 12/17 at 01:30 Docusate Sodium (Colace) 100 mg Q12H PRN PO CONSTIPATION Last administered on 20:00; Admin Dose 100 MG; Start 12/17/16 at 01:30 Magnesium Hydroxide (Milk Of Mag) 30 ml DAILY PRN PO CONSTIPATION; Start at 01:30 Pantoprazole (Protonix Tab) 40 mg DAILY@06 PO Last administered on 12/21/16 05 :55; Admin Dose 40 MG; Start 12/17/16 at 06:00 Heparin Sodium (Porcine) (Heparin (5000 Units/0.5 ml)) 5,000 unit Q12 SC Last administered on 12/21/16 08:49; Admin Dose 5,000 UNIT; Start 12/17/16 at 09:00 Aspirin (Halfprin) 81 mg DAILY PO Last administered on 12/21/16 08:46; Admin Dose 81 MG; Start 12/17/16 at 09:00 Calcium Acetate (Phoslo) 667 mg TID PO Last administered on 12/21/16 08:46; Admin Dose 667 MG; Start 12/17/16 at 09:00 Docusate Sodium (Colace) 250 mg BID PO Last administered on 12/21/16 08:45; Admin Dose 250 MG; Start 12/17/16 at 09:00 Ergocalciferol (Drisdol) 50,000 unit Q7D PO Last administered on 12/19/16 08: 56; Admin Dose 50,000 UNIT; Start 12/19/16 at 09:00 Multivit/Ca Carb/ B Cmplx/FA/Prenat (Cecilia-Sana) 1 tab DAILY PO Last administered on 12/21/16 08:46; Admin Dose 1 TAB; Start 12/17/16 at 09:00 Nifedipine (Procardia Xl) 120 mg DAILY PO Last administered on 12/21/16 08:47 ; Admin Dose 120 MG; Start 12/17/16 at 09:00 Hydralazine HCl (Apresoline) 25 mg Q4H PRN PO ELEVATED BLOOD PRESSURE Last administered on 12/18/16 20:00; Admin Dose 25 MG; Start 12/17/16 at 11:00 Atorvastatin Calcium (Lipitor) 40 mg HS PO Last administered on 12/20/16 20:29 ; Admin Dose 40 MG; Start 12/17/16 at 21:00 Hydralazine HCl (Apresoline) 10 mg Q4H PRN IV for sbp greater than 180 Last administered on 12/18/16 22:46; Admin Dose 10 MG; Start 12/18/16 at 23:00 Clonidine (Catapres) 0.2 mg TID PO Last administered on 12/21/16 10:45; Admin Dose 0.2 MG; Start 12/19/16 at 09:00 Ciprofloxacin HCl (Ciprofloxacin HCl Otic) 1 drop TID LEFT EAR Last administered on 12/21/16 10:44; Admin Dose 1 DROP; Start 12/20/16 at 09:00 Ciprofloxacin (Cipro) 250 mg DAILY@06 PO Last administered on 12/21/16 05:55; Admin Dose 250 MG; Start 12/21/16 at 06:00 SANTIAGO FAUSTIN NP Dec 21, 2016 11:44
[2016-12-21 14:23] VITALS: BP 106/44
--- NOTE | 2016-12-21 16:52 | CONS ---
Date/Time of Note Date/Time of Note DATE: 12/21/16 TIME: 16:48 Assessment/Plan Assessment/Plan Chief Complaint/Hosp Course 1. otomastoiditis. 2. Endstage renal disease. 3. Hypertension, CONTROLLED. 4. Diabetes mellitus, WITH RENAL COMPLICATIONS. 5. Legal blindness. 6. The patient has anemia. 7. Neutropenia. 8. AV fistula in left upper extremity. 9. Hemodialysis 3 times a week, Saturday, , Saturday. Problems: Additional Assessment/Plan 1. CONTINUE HD 2. CONTINUE IV ANTIBIOTICS Consultation Date/Type/Reason Admit Date/Time Dec 17, 2016 at 01:12 Initial Consult Date THOMAS Type of Consultation: NEPHROLOGY Reason for Consultation RENAL FAILURE 24 HR Interval Summary Constitutional: other ( NO STOOL FOR 3 DAYS) Exam/Review of Systems Vital Signs Vitals Vital Signs Date Time Temp Pulse Resp B/P Pulse Ox O2 Delivery O2 Flow Rate FiO2 12/21/16 14:23 106/44 12/21/16 07:00 98.3 51 20 99 12/18/16 22:30 Room Air Intake and Output 12/20/16 12/20/16 12/21/16 15:00 23:00 07:00 Intake Total 50 ml 500 ml 200 ml Output Total 2500 ml Balance 50 ml -2000 ml 200 ml Exam Constitutional: alert Psych: no complaints Head: normocephalic Eyes: nl conjunctiva, other (BLIND) Neck: other (TENDER) Results Result Diagram: 12/21/16 0455 12/21/16 0455 Results 24 hrs Laboratory Tests Test 12/21/16 04:55 White Blood Count 2.9 L Red Blood Count 3.26 L Hemoglobin 10.0 L Hematocrit 30.5 L Mean Corpuscular Volume 93.6 Mean Corpuscular Hemoglobin 30.7 Mean Corpuscular Hemoglobin Concent 32.8 Red Cell Distribution Width 13.5 Platelet Count 167 Mean Platelet Volume 11.2 H Neutrophils % 31.5 L Lymphocytes % 44.9 Monocytes % 10.9 Eosinophils % 11.6 H Basophils % 1.1 Nucleated Red Blood Cells % 0.0 Neutrophils # 0.9 L Lymphocytes # 1.3 Monocytes # 0.3 Eosinophils # 0.3 Basophils # 0.0 Nucleated Red Blood Cells # 0.0 Sodium Level 137 Potassium Level 4.2 Chloride Level 95 L Carbon Dioxide Level 31 Anion Gap 15 Blood Urea Nitrogen 31 #H Creatinine 4.60 #H Glucose Level 111 Calcium Level 8.9 Phosphorus Level 4.2 Magnesium Level 2.1 Medications Medications Current Medications Ondansetron HCl (Zofran Inj) 4 mg Q6H PRN IV NAUSEA AND/OR VOMITING Last administered on 12/17/16 12:06; Admin Dose 4 MG; Start 12/17/16 at 01:30 Acetaminophen (Tylenol Tab) 650 mg Q6H PRN PO PAIN LEVEL 1-3 OR FEVER; Start at 01:30 Acetaminophen/ Hydrocodone Bitart ([place] (5/325)) 1 tab Q6H PRN PO MODERATE PAIN LEVEL 4-6 Last administered on 12/20/16 09:34; Admin Dose 1 TAB; Start at 01:30 Morphine Sulfate (morphine) 2 mg Q4H PRN IV SEVERE PAIN LEVEL 7-10; Start 12/17 at 01:30 Docusate Sodium (Colace) 100 mg Q12H PRN PO CONSTIPATION Last administered on 20:00; Admin Dose 100 MG; Start 12/17/16 at 01:30 Magnesium Hydroxide (Milk Of Mag) 30 ml DAILY PRN PO CONSTIPATION; Start at 01:30 Pantoprazole (Protonix Tab) 40 mg DAILY@06 PO Last administered on 12/21/16 05 :55; Admin Dose 40 MG; Start 12/17/16 at 06:00 Heparin Sodium (Porcine) (Heparin (5000 Units/0.5 ml)) 5,000 unit Q12 SC Last administered on 12/21/16 08:49; Admin Dose 5,000 UNIT; Start 12/17/16 at 09:00 Aspirin (Halfprin) 81 mg DAILY PO Last administered on 12/21/16 08:46; Admin Dose 81 MG; Start 12/17/16 at 09:00 Calcium Acetate (Phoslo) 667 mg TID PO Last administered on 12/21/16 12:28; Admin Dose 667 MG; Start 12/17/16 at 09:00 Docusate Sodium (Colace) 250 mg BID PO Last administered on 12/21/16 08:45; Admin Dose 250 MG; Start 12/17/16 at 09:00 Ergocalciferol (Drisdol) 50,000 unit Q7D PO Last administered on 12/19/16 08: 56; Admin Dose 50,000 UNIT; Start 12/19/16 at 09:00 Multivit/Ca Carb/ B Cmplx/FA/Prenat (Cecilia-Sana) 1 tab DAILY PO Last administered on 12/21/16 08:46; Admin Dose 1 TAB; Start 12/17/16 at 09:00 Nifedipine (Procardia Xl) 120 mg DAILY PO Last administered on 12/21/16 08:47 ; Admin Dose 120 MG; Start 12/17/16 at 09:00 Hydralazine HCl (Apresoline) 25 mg Q4H PRN PO ELEVATED BLOOD PRESSURE Last administered on 12/18/16 20:00; Admin Dose 25 MG; Start 12/17/16 at 11:00 Atorvastatin Calcium (Lipitor) 40 mg HS PO Last administered on 12/20/16 20:29 ; Admin Dose 40 MG; Start 12/17/16 at 21:00 Hydralazine HCl (Apresoline) 10 mg Q4H PRN IV for sbp greater than 180 Last administered on 12/18/16 22:46; Admin Dose 10 MG; Start 12/18/16 at 23:00 Clonidine (Catapres) 0.2 mg TID PO Last administered on 12/21/16 14:23; Admin Dose 0.2 MG; Start 12/19/16 at 09:00 Ciprofloxacin HCl (Ciprofloxacin HCl Otic) 1 drop TID LEFT EAR Last administered on 12/21/16 14:20; Admin Dose 1 DROP; Start 12/20/16 at 09:00 Ciprofloxacin (Cipro) 250 mg DAILY@06 PO Last administered on 12/21/16 05:55; Admin Dose 250 MG; Start 12/21/16 at 06:00 Miscellaneous Information (*Rx Drug Level Order Reminder*) 1 ONCE ONCE XX ; Start 12/22/16 at 05:00; Stop 12/22/16 at 05:01 JAVED CARBAJAL 24, 2017 16:52
--- NOTE | 2016-12-21 18:00 | PN ---
DATE: 12/21/2016 SUBJECTIVE: The patient is seen, feeling overall better. Case discussed with CAROL ANN Kan nurse terrance johnston regarding antibiotic management. It is likely we will discharge him with ciprofloxacin orall y and IV vancomycin to be given during dialysis. PHYSICAL EXAMINATION: VITAL SIGNS: Temperature 98.3, pulse 51, respirations 20, blood pressure 106/44, saturation 99%. GENERAL: No acute distress. The patient is frail, pale, less pain upon movement of the left ear. CARDIOVASCULAR: S1, S2, regular rate. LUNGS: Clear. ABDOMEN: Soft, nontender. EXTREMITIES: Contracted at the knees. LABORATORY DATA: White count is 2.9, hemoglobin 10, hematocrit 31, platelet count 167, neutrophils low at 31%, lymphocytes 45%, eosinophils 12%. Sodium 137, potassium 4.2, chloride 95, bicarbonate 3 1, BUN 31, creatinine 4.6, glucose 111. CURRENT MEDICATIONS: Reviewed include: 1. Cipro 250 daily. 2. Cipro drops t.i.d. to the left ear. 3. Vitamin D 50,000 every 7 days. 4. Clonidine 0.2 t.i.d. 5. Hydralazine p.r.n. 5. Lipitor 40 mg at bedtime. 6. Sensipar with dinner. 7. Heparin 5000 subcutaneous q.12. 8. Aspirin 81 mg daily. 9. PhosLo 667 t.i.d. 10. Colace 250 b.i.d. 11. Cecilia-Sana 1 tab daily. 12. Procardia-XL 120 daily. 13. Renvela t.i.d. 14. Protonix 40 mg daily. 15. Zofran p.r.n. ASSESSMENT AND PLAN: This is a 66-year-old male with history of end-stage renal disease, d iabetes mellitus, hypertension, legally blind, who presented with left ear pain, was found to have o tomastoiditis, organism pseudomonas and Enterococcus. 1. Left ear mastoiditis. Continue Cipro and vancomycin. We will arrange discharge planning, correctional counselor/case manager to assist, possibly after dialysis tomorrow. I appreciate Dr. Duran, ENT evaluation. Cli nically improving. 2. End-stage renal disease. Next dialysis is tomorrow. 3. Dyslipidemia, on statin. 4. Diabetes mellitus, controlled. 5. Continue deep vein thrombosis prophylaxis and gastrointestinal prophylaxis. The patient appears comfortable. We will follow. Dictated By: MARY DUPONT/SHARYN Conf#: [id number] DID#: [id number]
[2016-12-21] MEDS: DOCUSATE SODIUM 100 MG CAP PO PRN (18:13)
[2016-12-21] MEDS: CINACALCET 30 MG TAB PO SCH (18:13)
[2016-12-21 20:30] VITALS: BP 137/64; RESP 16
[2016-12-21] MEDS: ATORVASTATIN 40 MG TAB PO SCH (20:59)
[2016-12-22] VITALS (10 sets, daily range): BP systolic 113–181; BP diastolic 49–83; PULSE 46–58; RESP 18
[2016-12-22] MEDS: PANTOPRAZOLE (EC) 40 MG TAB PO SCH (06:05)
[2016-12-22] MEDS: CIPROFLOXACIN 250 MG TAB PO SCH (06:05)
[2016-12-22 06:44] LABS: POTASSIUM 4.8 mmol/L (3.5-5.1)
[2016-12-22 06:46] LABS: CREATININE 6.19 mg/dl (0.61-1.24)
[2016-12-22 06:47] LABS: CALCIUM 8.9 mg/dl (8.4-10.2)
[2016-12-22] MEDS: SEVELAMER CARBONATE 0.8 GM PKT PO SCH ×3 (08:47→18:00)
[2016-12-22] MEDS: MULTIVIT/CA CARB/B CMPLX/FA TAB PO SCH (08:49)
[2016-12-22] MEDS: ASPIRIN (EC) 81 MG TAB PO SCH (08:49)
[2016-12-22] MEDS: DOCUSATE SODIUM 250 MG CAP PO SCH (08:49)
[2016-12-22] MEDS: CALCIUM ACETATE 667 MG CAP PO SCH ×2 (08:50→13:00)
[2016-12-22] MEDS: HEPARIN 5,000 UNIT/0.5 ML SYG SC SCH (08:56)
[2016-12-22] MEDS: CIPROFLOXACIN HCL OTIC DROP 0.25 ML LEFT EAR SCH ×2 (09:00→12:48)
[2016-12-22] MEDS: NIFEdipine (XL) 60 MG TAB PO SCH (09:49)
--- NOTE | 2016-12-22 11:13 | PDOCDIS ---
Discharge Instructions CONDITION Patient Condition: Stable HOME CARE INSTRUCTIONS: Special Diet: 2gm Na 1800 martir ACTIVITY: Activity Restrictions: Slowly Increase Activity FOLLOW UP/APPOINTMENTS Appointments follow up PMD within 1 week, follow up with Dr. Armen Duran ENT for follow up, see attached prescriptions MARY DINERO MD Dec 22, 2016 11:13
[2016-12-22] MEDS ORDERED: Vancomycin Iv Per Pharmacy XX (11:27)
[2016-12-22] MEDS ORDERED: CIPR-193 PO (11:27)
[2016-12-22] MEDS ORDERED: CIPR1DRO3 LEFT EAR (11:27)
[2016-12-22] MEDS ORDERED: AMO500 PO (11:27)
[2016-12-22] MEDS ORDERED: PANT40TA4 PO (11:27)
[2016-12-22] MEDS ORDERED: CLON-379 PO (11:27)
--- NOTE | 2016-12-22 11:53 | DS ---
DATE OF ADMISSION: 12/17/2016 DATE OF DISCHARGE: 12/22/2016 REASON FOR ADMISSION: Left ear otomastoiditis and severe left ear pain. HOSPITAL COURSE: The patient is a 66-year-old male who is legally blind, debilitated, with a history of end-stage renal disease, on hemodialysis every Saturday, , and Saturday, nonamb ulatory, with a history of diabetes mellitus and hypertension, who currently resides at [facility]. The patient in the past 2 to 3 weeks [facility] and was treated with antibiotics, with no relief. He now presents with ongoing wyatt n. A CAT scan of the brain in the ER showed moderate diffuse atrophy, microangiopathic ischemic marisela nges, old right external capsule lacunar infarct, but there is interval development of left ear mast oiditis. Because of these findings, the patient was admitted for further care and started on Zosyn and vancomycin IV. ID was consulted. Also Dr. Roel Jacob, the hog buyer, for dialysis continu ation, and also Dr. Armen Duran, the ENT specialist. The patient clinically improved with the above treatment plan. Zosyn was switched to ciprofloxacin, as culture came back Pseudomonas aeruginosa, Enterococcus species. We continued the vancomycin. Discussed with ID, , okay to switch to [place] xicillin but during dialysis will provide him with vancomycin for treatment for his enterococcus and continue with oral ciprofloxacin. The ciprofloxacin is renally dosed. The patient is clinically mu ch better. Pain is almost gone, feeling better, and will be discharged today with the following med ications: 1. Amoxicillin 500 t.i.d. for 7 days. 2. Cipro 250 daily for 10 days. 3. Ciprofloxacin otic, 1 drop to the left ear t.i.d. 4. Vancomycin, IV dose per pharmacy during his dialysis. 5. PhosLo 667, two tabs t.i.d. 6. Colace 250 b.i.d. 7. Cecilia-Sana 1 tab daily. 8. Procardia-XL 120 mg daily. 9. Protonix 40 mg daily. 10. Clonidine 0.2 t.i.d. 11. Lipitor 40 mg at bedtime. 12. Sensipar 30 mg q.p.m., dinner. 13. Aspirin 81 mg daily. FINAL DIAGNOSES: 1. Left ear mastoiditis. 2. Left ear pain. 3. End-stage renal disease. 4. Hypertension. 5. Old lacunar infarct. 6. Legally blind. 7. History of diabetes mellitus, controlled now without medications. 8. 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 9. Debilitated state. 10. Anemia of chronic disease. 11. Dyslipidemia. 12. Moderate protein malnutrition. BMI is 20.8, clinically appears to be quite cachectic. 13. Left AV shunt. 14. Also he takes vitamin D 50,000 units q. weekly. DIET: 2-g sodium. ACTIVITY: As tolerated. DISPOSITION: Patient will be discharged today to the assisted living facility. CONDITION ON DISCHARGE: Fair. Dictated By: MARY DUPONT/SHARYN Conf#: [id number] DID#: [id number]
--- NOTE | 2016-12-22 12:49 | CONS ---
Date/Time of Note Date/Time of Note DATE: 12/22/16 TIME: 12:48 Assessment/Plan Assessment/Plan Chief Complaint/Hosp Course 1. otomastoiditis. 2. Endstage renal disease. 3. Hypertension, CONTROLLED. 4. Diabetes mellitus, WITH RENAL COMPLICATIONS. 5. Legal blindness. 6. The patient has anemia. 7. Neutropenia. 8. AV fistula in left upper extremity. 9. Hemodialysis 3 times a week, Saturday, , Saturday. Problems: Additional Assessment/Plan 1. Pending D.c per dr Patterson Consultation Date/Type/Reason Admit Date/Time Dec 17, 2016 at 01:12 Initial Consult Date THOMAS Type of Consultation: NEPHROLOGY 24 HR Interval Summary Constitutional: improved Exam/Review of Systems Vital Signs Vitals Vital Signs Date Time Temp Pulse Resp B/P Pulse Ox O2 Delivery O2 Flow Rate FiO2 12/22/16 07:54 98.8 50 18 181/83 99 12/18/16 22:30 Room Air Intake and Output 12/21/16 12/21/16 12/22/16 15:00 23:00 07:00 Intake Total 340 ml Balance 340 ml Exam Constitutional: alert, oriented Psych: no complaints Head: normocephalic Eyes: other (blind) ENMT: nl external ears & nose (swelling left side) Neck: supple Respiratory: clear to auscultation Cardiovascular: regular rate and rhythm Results Result Diagram: 12/21/16 0455 12/22/16 0526 Results 24 hrs Laboratory Tests Test 12/22/16 05:26 Sodium Level 133 L Potassium Level 4.8 Chloride Level 92 L Carbon Dioxide Level 30 Anion Gap 16 Blood Urea Nitrogen 46 #H Creatinine 6.19 H Glucose Level 129 Calcium Level 8.9 Random Vancomycin Level 19.3 Medications Medications Current Medications Ondansetron HCl (Zofran Inj) 4 mg Q6H PRN IV NAUSEA AND/OR VOMITING Last administered on 12/17/16 12:06; Admin Dose 4 MG; Start 12/17/16 at 01:30 Acetaminophen (Tylenol Tab) 650 mg Q6H PRN PO PAIN LEVEL 1-3 OR FEVER; Start at 01:30 Acetaminophen/ Hydrocodone Bitart (Raymond (5/325)) 1 tab Q6H PRN PO MODERATE PAIN LEVEL 4-6 Last administered on 12/20/16 09:34; Admin Dose 1 TAB; Start at 01:30 Morphine Sulfate (morphine) 2 mg Q4H PRN IV SEVERE PAIN LEVEL 7-10; Start 12/17 at 01:30 Docusate Sodium (Colace) 100 mg Q12H PRN PO CONSTIPATION Last administered on 18:13; Admin Dose 100 MG; Start 12/17/16 at 01:30 Magnesium Hydroxide (Milk Of Mag) 30 ml DAILY PRN PO CONSTIPATION Last administered on 12/21/16 18:13; Admin Dose 30 ML; Start 12/17/16 at 01:30 Pantoprazole (Protonix Tab) 40 mg DAILY@06 PO Last administered on 12/22/16 06 :05; Admin Dose 40 MG; Start 12/17/16 at 06:00 Heparin Sodium (Porcine) (Heparin (5000 Units/0.5 ml)) 5,000 unit Q12 SC Last administered on 12/22/16 08:56; Admin Dose 5,000 UNIT; Start 12/17/16 at 09:00 Aspirin (Halfprin) 81 mg DAILY PO Last administered on 12/22/16 08:49; Admin Dose 81 MG; Start 12/17/16 at 09:00 Calcium Acetate (Phoslo) 667 mg TID PO Last administered on 12/22/16 08:50; Admin Dose 667 MG; Start 12/17/16 at 09:00 Docusate Sodium (Colace) 250 mg BID PO Last administered on 12/22/16 08:49; Admin Dose 250 MG; Start 12/17/16 at 09:00 Ergocalciferol (Drisdol) 50,000 unit Q7D PO Last administered on 12/19/16 08: 56; Admin Dose 50,000 UNIT; Start 12/19/16 at 09:00 Multivit/Ca Carb/ B Cmplx/FA/Prenat (Cecilia-Sana) 1 tab DAILY PO Last administered on 12/22/16 08:49; Admin Dose 1 TAB; Start 12/17/16 at 09:00 Nifedipine (Procardia Xl) 120 mg DAILY PO Last administered on 12/22/16 09:49 ; Admin Dose 120 MG; Start 12/17/16 at 09:00 Hydralazine HCl (Apresoline) 25 mg Q4H PRN PO ELEVATED BLOOD PRESSURE Last administered on 12/18/16 20:00; Admin Dose 25 MG; Start 12/17/16 at 11:00 Atorvastatin Calcium (Lipitor) 40 mg HS PO Last administered on 12/21/16 20:59 ; Admin Dose 40 MG; Start 12/17/16 at 21:00 Hydralazine HCl (Apresoline) 10 mg Q4H PRN IV for sbp greater than 180 Last administered on 12/18/16 22:46; Admin Dose 10 MG; Start 12/18/16 at 23:00 Clonidine (Catapres) 0.2 mg TID PO Last administered on 12/22/16 09:48; Admin Dose 0.2 MG; Start 12/19/16 at 09:00 Ciprofloxacin HCl (Ciprofloxacin HCl Otic) 1 drop TID LEFT EAR Last administered on 12/21/16 20:59; Admin Dose 1 DROP; Start 12/20/16 at 09:00 Ciprofloxacin 250 mg 250 mg DAILY@06 PO Last administered on 12/22/16 06:05; Admin Dose 250 MG; Start 12/21/16 at 06:00 Vancomycin HCl/ Sodium Chloride (Vancocin/NS) 150 ml @ 75 mls/hr Q96H IVPB ; Start 12/22/16 at 16:00 JAVED CARBAJAL 25, 2017 12:49
[2016-12-22] MEDS ORDERED: VANCOMYCIN 750 MG in SOD CHLORIDE 0.9% 150 ML IVPB SCH (16:00)
[2016-12-22] MEDS: CINACALCET 30 MG TAB PO SCH (18:00)
== END 2016-12-22 20:50 | disposition home or self-care (01) | DRG 152 ==
LOC: E/R 21:26 → MS2 12-17 01:12
PROVIDERS: ADMIT Internal Medicine; ATTEND Internal Medicine
PROC: 5A1D60Z (ICD-10-PCS; principal; 2016-12-18)
DX: H70.92 Unspecified mastoiditis, left ear (principal); N18.6 End stage renal disease; E44.0 Moderate protein-calorie malnutrition; D70.9 Neutropenia, unspecified; I12.0 Hypertensive chronic kidney disease with stage 5 chronic kidney disease or end stage renal disease; E11.22 Type 2 diabetes mellitus with diabetic chronic kidney disease; Z99.2 Dependence on renal dialysis; Z86.73 Personal history of transient ischemic attack (TIA), and cerebral infarction without residual deficits; H54.8 Legal blindness, as defined in USA; D63.8 Anemia in other chronic diseases classified elsewhere; Z68.20 Body mass index [BMI] 20.0-20.9, adult; Z74.01 Bed confinement status; E03.9 Hypothyroidism, unspecified; B96.5 Pseudomonas (aeruginosa) (mallei) (pseudomallei) as the cause of diseases classified elsewhere; B95.2 Enterococcus as the cause of diseases classified elsewhere
CPT/HCPCS: 36415; 70450; 71010; 80048; 80053; 80202; 83036; 83735; 84100; 84443; 85025; 85610; 85730; 87070; 87081; 90935; 96374; 96375; J0360; J1644; J2270; J2405; J2543; J3370; J7040; J7050